=== PATIENT | male | born 1945 | race Caucasian/White ===

== ENCOUNTER → 2022-06-04 | Outpatient (CLI) | payer MEDICARE, OTHER, SELFPAY ==
--- NOTE | 2022-06-04 09:51 | ECHOD_ITS ---
Reason For Study: Syncope/Near Syncope Procedure This was a 2D Doppler, Color Flow transthoracic echocardiogram. The exam was of adequate technical quality. Exam performed in department. Left Ventricle Normal LV size. Left ventricular systolic function is normal. The estimated ejection fraction is 65 %. No evidence for diastolic dysfunction. No regional wall motion abnormalities noted. Right Ventricle Normal RV size. Normal systolic function. Atria The left atrium is mildly enlarged. Normal right atrium. No doppler evidence for ASD. Mitral Valve There is no mitral annular calcification. Normal mitral valve. Mild-Moderate (1-2+) mitral valve insufficiency. Tricuspid Valve Normal tricuspid valve. Trivial tricuspid valve insufficiency. Unable to estimate RV systolic pressure due to insufficient tricuspid regurgitant envelope. Aortic Valve Trisinus/trileaflet aortic valve. Mild focal aortic valve calcification. Pulmonic Valve The pulmonic valve is not well visualized. Great Vessels Normal sized aortic root. Pericardium/Pleural No pericardial effusion. MMode/2D Measurements & Calculations LVIDd: 4.8 cm IVSd: 1.2 cm Ao root diam: 3.2 cm LVIDs: 2.6 cm LVPWd: 0.98 cm LA dimension: 4.6 cm RVDd: 4.0 cm FS: 45.3 % LAV(MOD-bp): 69.3 ml LA A4 area: 22.8 cm2 RA A4 area: 19.6 cm2 LAV(MOD-bp) Indexed: 32.3 ml/m2 LAV(MOD-sp2): 69.8 ml LAV(MOD-sp4): 69.0 ml Time Measurements MV dec time: 0.17 sec Doppler Measurements & Calculations MV E max bob: 81.4 cm/sec Lat Peak E' Bob: 12.5 cm/sec Med Peak E' Bob: 10.5 cm/sec MV A max bob: 70.7 cm/sec E/E' lat: 6.5 E/E' med: 7.8 MV E/A: 1.2 MV V2 max: 99.5 cm/sec MV P1/2t max bob: 99.5 cm/sec Ao V2 max: 178.3 cm/sec MV max P.0 mmHg MV P1/2t: 57.8 msec Ao max P.7 mmHg MV V2 mean: 51.2 cm/sec MV dec slope: 504.7 cm/sec2 MV mean P.2 mmHg MVA(P1/2t): 3.8 cm2 MV V2 VTI: 27.5 cm LV V1 max: 147.8 cm/sec MR max bob: 546.3 cm/sec PA V2 max: 140.2 cm/sec LV V1 max P.7 mmHg MR max P.4 mmHg PA V2 mean: 94.9 cm/sec ECHO/Echo Complete Interpretation Summary Left ventricular systolic function is normal. The estimated ejection fraction is 65 %. The left atrium is mildly enlarged. Mild-Moderate (1-2+) mitral valve insufficiency. Trivial tricuspid valve insufficiency. Mild focal aortic valve calcification. Unable to estimate RV systolic pressure due to insufficient tricuspid regurgita nt envelope. No evidence for diastolic dysfunction. Ordering Physician: Balwinder Balbuena Referring Physician: Balwinder Pardo Performed By: Jose L Hubbard RCS
== END | disposition home or self-care (01) ==
LOC: CVS 09:50
PROVIDERS: PCP Family Medicine; Visit Provider Internal Medicine Cardiovascular Disease
DX: I25.10 Atherosclerotic heart disease of native coronary artery without angina pectoris (principal); R55 Syncope and collapse; I49.49 Other premature depolarization; E78.00 Pure hypercholesterolemia, unspecified; I10 Essential (primary) hypertension
CPT/HCPCS: 93306

== ENCOUNTER 2022-06-10 09:26 | Emergency (ER) | payer MEDICARE, OTHER, SELFPAY ==
[2022-06-10] VITALS (14 sets, daily range): BP systolic 143–175; BP diastolic 69–85; PULSE 54–86; RESP 10–18; TEMP 36.7; O2SAT 94–98; BMI 29.5
--- NOTE | 2022-06-10 09:31 | EKG12_ITS ---
Test Reason : HR Blood Pressure : / mmHG Vent. Rate : 073 BPM Atrial Rate : 073 BPM P-R Int : 320 ms QRS Dur : 120 ms QT Int : 404 ms P-R-T Axes : 063 -64 062 degrees QTc Int : 445 ms Sinus rhythm with 1st degree A-V block Left axis deviation Right bundle branch block Inferior infarct , age undetermined Abnormal ECG Confirmed by AZEB SANTILLAN MD ([id number]), metropolitan editor VALDEZ LOWRY ([id number]) on 06/14/2022 12:31:49 PM Referred By: ADITI Confirmed By:AZEB SANTILLAN MD
[2022-06-10 09:39] LABS: Absolute Lymphocyte Count 1.95 X10^3/uL (0.83-4.51); Absolute Neutrophil Count 2.5 X10^3/uL (2.0-7.7); Basophil# 0.05 X10^3/uL; Eosinophil# 0.09 X10^3/uL; Eosinophils% 1.8 % (0-5); Hematocrit 47.5 % (40-54); Lymphocyte # 1.95 X10^3/ul (0.83-4.51); Mean Corp Hgb Conc 33.7 g/dL (32-36); Mean Corpuscular Hgb 30.1 pg (27.0-32.0); Mean Corpuscular Volume 89.5 fL (80-94); Mean Platelet Vol. 10.2 fl (6.2-12.0); Monocyte# 0.44 X10^3/uL; Monocyte% 8.8 % (0-10); NRBC Flagged by Analyzer 0 % (0-5); Neutrophil # 2.45 X10^3/uL (2.7-7.7); Platelet Count 199 K/mm3 (150-450); RBC Distribution Width CV 12.9 % (11.6-14.6); RBC Distribution Width SD 42.4 fl (35.1-43.9); Red Blood Count 5.31 M/mm3 (4.6-6.2)
--- NOTE | 2022-06-10 09:39 | EX.ED.DYSGE1 ---
HPI History of Present Illness Chief Complaint: Palpitations Detail of Chief Complaint: Heart block and wide-complex tachycardia Informant: patient and other (Dr. Balbuena called prior to patient's arrival. I did speak with Dr. Balbuena. He informed me of patient's event monitor readings.) Onset/Context/Timing Onset: Days Context: Sudden Onset Timing: Intermittent Quality: Second-degree heart block, complete heart block and nonsustained V. tach Location: Cardiovascular Current Severity: Presently patient is having no symptomss Maximum Severity: Severe Worsened by: Nothing Relieved by: Nothing Associated Symptoms Associated Symptoms: Syncope Narrative Narrative: Patient is a 77-year-old male with history of hypertension, pure hypercholesterolemia who was sent to the emergency room because of heart block and wide-complex tachycardia, nonsustained V. tach. Patient had an event monitor placed to work-up syncope. He had a work-up in 2017 and was cathed at [facility]. He does not recall the [employer] or if he saw an EP [employer]. Rhythm strips that were reproduced from event monitor were reviewed. These were sent from Dr. Balbuena's office. Also reviewed cardiology records confirming that event monitor was placed for syncope. Patient presents without symptoms. He states he has had occasional swelling of his feet. His last dose of metoprolol was last evening. He is on amlodipine. He did take a baby aspirin. He was scheduled for a cardiac catheterization. Patient denies increased dyspnea with exertion. He denies dyspnea at rest. He denies orthopnea or PND. He denies history of heart failure. Left ventricular function is normal. He denies any anginal anginal equivalent symptoms in the past 1 to 2 weeks. He denies GI symptoms. He denies black or maroon-colored stool. He is not on an anticoagulant. Prior similar symptoms: Yes Recent Illness/Hospitalization: No PFSH PFS Medical History Atherosclerotic heart disease of [place] coronary artery without angina pectoris CAD (coronary artery disease) Cervical spine degeneration Chronic renal disease, stage III Dizziness Essential (primary) hypertension Excessive cerumen in both ear canals Goiter History of left heart catheterization (LHC) (~01/12/17) History of melanoma Hypercholesterolemia Lumbar degenerative disc disease Prostate cancer Pure hypercholesterolemia PVC (premature ventricular contraction) Right hip pain Skin lesion Home Medications epinephrine 0.15 mg/0.15 mL auto-injector (for 33 to 66 lb patients) 0.15 ml IM ONCE PRN hypersensitivity reaction 03/31/22 [History Last Taken Unknown] lisinopril 40 mg tablet 40 mg PO DAILY 03/31/22 [History Last Taken Unknown] omeprazole 20 mg capsule,delayed release 20 mg PO DAILY 03/31/22 [History Last Taken Unknown] prednisone 5 mg tablet 5 mg PO DAILY 03/31/22 [History Last Taken Unknown] amlodipine 5 mg tablet 10 mg PO DAILY 05/26/22 [History Last Taken Unknown] atorvastatin 20 mg tablet 40 mg PO DAILY 05/26/22 [History Last Taken Unknown] aspirin 81 mg tablet,delayed release (Adult Aspirin Regimen) 81 mg PO DAILY For Cardiac Catheterization #10 tabs 06/09/22 [Rx Last Taken Unknown] Allergy/AdvReac Type Severity Reaction Status Date / Time bee venom protein (honey bee) Allergy Severe Anaphylaxis Verified 06/10/22 09:31 Anesthetics - Amide Type - Allergy Unknown Other Verified 06/10/22 09:31 Select A Family History Mother Cancer Brain Brother CAD (coronary artery disease) stents Sister Rheumatic arteritis Father , 70 Hypertension AAA (abdominal aortic aneurysm) CRF (chronic renal failure) Surgical History History of lumbar discectomy (~1987) History of prostatectomy (~06/2006) History of skin cancer (~02/2007) Social History (Updated 06/10/22 @ 09:[address] Rafiq Knight MD) household members: spouse Smoking Status: Never smoker alcohol intake: current alcohol intake frequency: a few times a month substance use type: does not use caffeine: Yes Type: coffee Number of servings: 1 ROS ROS ED Constitutional Constitutional ED: Denies chills, fever(s), subjective, sweats or weight loss Eyes Eyes: Denies blurry vision, change in vision or diplopia ENT ENT ED: Denies ear pain or rhinorrhea Cardiovascular Cardiovascular: Denies chest pain, orthopnea, palpitations, paroxysmal nocturnal dyspnea or racing heartbeat Respiratory/Chest Respiratory/Chest: Denies cough, dyspnea, dyspnea on exertion, orthopnea or paroxysmal nocturnal dyspnea Gastrointestinal Gastrointestinal: Denies abdominal pain, melena, nausea or vomiting Genitourinary Genitourinary ED: Denies dysuria, hematuria or urinary frequency Musculoskeletal Musculoskeletal: Denies arthralgias, back pain, myalgias or neck pain Neurologic Neurologic: Denies paresthesias Psychiatric Psychiatric: Denies anxiety or depression Hematologic/Lymphatic Hematologic/Lymphatic: Reports systems reviewed and no addt'l complaints, except as documented and none EXAM Physical Exam Const Vital Signs: 06/10/22 09:27 06/10/22 09:31 06/10/22 10:26 Temperature 98.0 F Temperature Source Temporal Pulse Rate 86 61 Respiratory Rate 16 12 Respiratory Effort Normal Respiratory Pattern Normal Blood Pressure 175/75 H 150/77 H Blood Pressure Mean 108 101 Pulse Ox 98 97 Oxygen Delivery Method Room Air Room Air 06/10/22 11:00 06/10/22 12:00 06/10/22 13:45 Temperature Temperature Source Pulse Rate 61 56 L 54 L Respiratory Rate 12 13 10 L Respiratory Effort Respiratory Pattern Blood Pressure 149/69 H 144/76 H 158/70 H Blood Pressure Mean 95 98 99 Pulse Ox 97 95 95 Oxygen Delivery Method Room Air Room Air 06/10/22 14:08 06/10/22 15:00 06/10/22 16:00 Temperature Temperature Source Pulse Rate 57 L 60 58 L Respiratory Rate 14 13 14 Respiratory Effort Respiratory Pattern Blood Pressure 156/76 H 167/80 H 149/78 H Blood Pressure Mean 102 109 101 Pulse Ox 95 96 97 Oxygen Delivery Method Positive well nourished and well developed General Appearance ED: well developed and NAD; Negative for cyanotic, diaphoretic or pallor HEENT Reports moist mucous membranes HEENT Narrative: Head is atraumatic normocephalic. Ears normal. Nares patent. Uvula midline. No deviation with protrusion. Eyes PERRL and EOMs intact bilaterally General Eye ED: Negative for pale conjunctiva or scleral icterus Neck no lymphadenopathy, supple and no JVD Chest Wall inspection of chest normal and palpation of chest normal Resp normal respiratory effort and clear to auscultation bilaterally Cardio regular rate, regular rhythm, S1 normal heart sound, S2 normal heart sound and no murmurs GI normal to inspection, nondistended, normoactive bowel sounds, non-tender, non-distended and no masses; Negative for hepatosplenomegaly GI Narrative: There is no palpable pulsatile mass. There is no bruit. Back/Spine no CVA tenderness Thoracic Spine / Upper Back: Negative for thoracic spinal tenderness Lumbar Spine / Lower Back: Negative for lumbar spinal tenderness Extremity normal to inspection Extremity Narrative: Distal pulses are 2+ upper and lower extremity and symmetric. General Extremety ED: Negative for edema or tenderness General Extremity: Negative for edema Neuro oriented x3, CN's II-XII intact bilaterally and no sensory deficits noted Sensorium / Orientation: alert Motor Exam: strength 5/5 throughout Psych mental status grossly normal Skin no rashes or lesions noted, no wounds and skin turgor normal General Skin Exam: elasticity normal; Negative for jaundice or pallor MDM MDM MDM Narrative Medical decision making narrative: Records from outside source including rhythm strips from event monitor were reviewed. Patient does have evidence of heart block as well as wide-complex tachycardia, nonsustained V. tach. Cath report from 2017 was reviewed from outside facility which reveals coronary disease that was insignificant. Spoke with Dr. Balbuena prior to patient's arrival. He recommends transfer to tertiary facility with EP [employer]. Patient was made aware of this. Since he has a relationship with cardiology at [facility], [facility], transfer line was contacted to facilitate transfer. Patient will need cardiac work-up including cardiac cath, possible EP study and placement of pacemaker since patient is symptomatic with syncope. CBC was obtained assess white count and rule out anemia. Basic metabolic panel to assess renal function since he will require cardiac cath. Troponin to rule out evidence of recent cardiac ischemia even though patient has no symptoms or complaints. Rapid COVID was obtained to facilitate transfer. Ispoke with the fellow who was a at [facility] and the transfer line nurse. He was informed that elevated troponin. Discussed anticoagulation. At this point will anticoagulate with heparin. I was informed that a bed would not be available till later on this afternoon. In light of the elevated troponin a repeat 2-hour troponin was obtained. The rhythm strips from the event monitor were reviewed and follow-up was made aware. He states with patient having third-degree AV block with junctional escape rhythm at this rarely advances to complete heart block. Patient's monitor strip was reviewed. There is been no evidence of heart block since presentation. I was informed by the charge nurse and payroll secretary at 06/01/2006 that [facility] was contacted. They have no scheduled discharges for latest afternoon. They have 11 patients waiting in the emergency room for admission. In light of this new information we will contact Dr. Balbuena regarding being keeping patient here until there is a bed at [facility] versus transfer to other facility. Also will discuss with patient. [facility] [place] transfer line was contacted. I spoke with the transfer nurse. I was informed there are 9 patients waiting the emergency room. Patient was made aware of this. Will contact [facility] to determine if they have any beds available. Time 1334 Spoke with the nurse at [facility] transfer line. She was informed of patient's presentation reason for transfer and past medical history. She will contact cardiology and EP cardiology., Time [address] Balbuena at approximately 1520. He was informed that there are no beds available at local facilities and there is a significant wait at [facility]. He will contact one of the EP [employer] at [facility]. Since patient has been on her present for 6 hours PTT has been drawn. We will adjust heparin accordingly. I was contacted by Dr. Balbuena at 06/04/2000. He contacted the head of EP at [facility] Dr. Rodriguez. If he is unable to find a bed patient will need to be admitted to [facility] until a bed is available at [facility]. Patient's history and physical, findings and plan were discussed with evening physician, Dr. Mejia. Disposition regarding admission to [facility] versus [facility] is pending presently. Lab Data Attestation: I reviewed the patient's lab results. Lab results narrative: CBC is normal. Basic metabolic panel is remarked for creatinine of 1.49 with a GFR 51. Glucose is elevated 184. First troponin is elevated 141. His only anginal equivalent has been dyspnea with exertion. 2-hour troponin is 133 with a delta of -8. Labs: Laboratory Results - last 24 hr 06/10/22 06/10/22 06/10/22 09:30 09:30 09:30 WBC 5.0 RBC 5.31 Hgb 16.0 Hct 47.5 MCV 89.5 MCH 30.1 MCHC 33.7 RDW Std Deviation 42.4 RDW Coeff of Reji 12.9 Plt Count 199 MPV 10.2 Immature Gran % (Auto) 0.400 Neut % (Auto) 49.0 Lymph % (Auto) 39.0 [place] % (Auto) 8.8 Eos % (Auto) 1.8 Baso % (Auto) 1.0 Absolute Neuts (auto) 2.5 Absolute Lymphs (auto) 1.95 Nucleated RBC % 0 PT 13.4 INR 1.1 APTT 28.5 Sodium 139 Potassium 4.4 Chloride 108 H Carbon Dioxide 26.0 Anion Gap 5 BUN 29 H Creatinine 1.43 H Estim Creat Clear Calc 47.54 Est GFR (MDRD) Af Amer 62 Est GFR (MDRD) Non-Af 51 L BUN/Creatinine Ratio 20.3 H Glucose 184 H Calcium 9.6 Troponin I High Sens 141 H* 06/10/22 11:38 WBC RBC Hgb Hct MCV MCH MCHC RDW Std Deviation RDW Coeff of Reji Plt Count MPV Immature Gran % (Auto) Neut % (Auto) Lymph % (Auto) [place] % (Auto) Eos % (Auto) Baso % (Auto) Absolute Neuts (auto) Absolute Lymphs (auto) Nucleated RBC % PT INR APTT Sodium Potassium Chloride Carbon Dioxide Anion Gap BUN Creatinine Estim Creat Clear Calc Est GFR (MDRD) Af Amer Est GFR (MDRD) Non-Af BUN/Creatinine Ratio Glucose Calcium Troponin I High Sens 133 H* EKG Initial EKG: Attestation: I personally reviewed and interpreted this EKG as follows: Interpretation: Sinus Rhythm (Sinus rhythm with a rate of 73 and a first-degree heart block. PA intervals 320 ms. QS duration 220 ms. QT duration is 404 ms. [place] to left. Patient does have evidence of a right bundle branch block. There is no acute ischemic changes noted.) Critical Care Time Critical Care Time: Yes Critical care time (excluding procedures): 75-104 minutes (77 minutes), Including time spent: (History, physical, documentation, independent interpretation of laboratory results, discussion with cardiology, Dr. Balbuena, discussion with transfer nurse at [facility] and fellow, [place]?.), Discussing w/Patient &/or Family/Metal Trim Erector, Discussing w/Consultants, Arranging Admission or Transfer (Documented in the MDM portion of the chart) and - (Documented in the MDM) Discharge Plan Triage Chief Complaint: Palpitations ED Provider: Rafiq Knight Dx/Rx/DC Orders Clinical Impression: Third degree heart block by electrocardiogram, Heart block AV second degree, Essential (primary) hypertension, Atherosclerotic heart disease of [place] coronary artery without angina pectoris, Wide-complex tachycardia, Elevated troponin I level, Acute hyperglycemia, Acute renal insufficiency, Pure hypercholesterolemia, Anticoagulation adequate with anticoagulant therapy Prescriptions: No Action prednisone 5 mg tablet 5 mg PO DAILY omeprazole 20 mg capsule,delayed release(DR/EC) 20 mg PO DAILY lisinopril 40 mg tablet 40 mg PO DAILY epinephrine 0.15 mg/0.15 mL auto-injector 0.15 ml IM ONCE PRN (Reason: hypersensitivity reaction) amlodipine 5 mg tablet 10 mg PO DAILY atorvastatin 20 mg tablet 40 mg PO DAILY aspirin [Adult Aspirin Regimen] 81 mg tablet,delayed release (DR/EC) 81 mg PO DAILY Qty: 10 0RF Primary Care Provider: Balwinder Pardo Referrals: Balwinder Pardo DO [Primary Care Provider] - Disposition Disposition: Acute Care Hospital
[2022-06-10 10:01] LABS: Anion Gap 5 (5-15); BUN 29 mg/dL (7-18); BUN/Creat Ratio 20.3 RATIO (10-20); Calcium,Total 9.6 mg/dL (8.5-10.1); Chloride 108 mmol/L (98-107); Creatinine, Serum 1.43 mg/dL (0.70-1.30); EST Glomerular Filtration Rate 51 mL/min (>60); Est Glom Filt Rate - Afr Amer 62 mL/min (>60); Estimated Creatinine Clearance 47.54 ml/min; Glucose 184 mg/dL (74-106); Potassium 4.4 mmol/L (3.5-5.1); Sodium Level 139 mmol/L (136-145); Troponin-I HS 141 pg/mL (3.0-78.0)
[2022-06-10 10:23] LABS: International Normalized Ratio 1.1; Prothrombin Time (Protime)PT. 13.4 SECONDS (11.7-14.9)
[2022-06-10 10:24] LABS: Partial Thromboplast Time 28.5 Seconds (24.1-36.2)
[2022-06-10] MEDS: Heparin Injection (Vial) 5,000 UNIT/ML VIAL 3000 UNIT IV (10:24)
[2022-06-10] MEDS: HEPARIN/D5w 25,000 UNITS 25,000 UNITS/250 ML IV.SOLN. 14 UNITS CONT INF (10:28)
[2022-06-10 12:07] LABS: Troponin-I HS 133 pg/mL (3.0-78.0)
[2022-06-10 17:07] LABS: Partial Thromboplast Time 118.8 Seconds (24.1-36.2)
--- NOTE | 2022-06-10 17:20 | HP.PCM.HOS_ITS ---
HPI - General General Date of Admission: 06/10/22 Date of Service: 06/10/22 HPI Narrative The patient is a 77 y/o M w/ PMHx: CKD stage III unclear subtype, HTN, HLD, Hx Prostate CA s/p prostatectomy, CAD, HTN, HLD, Chronic back pain with DDD who presents to the [facility] ED on 06/10/22 with history of recently having a 30-day event monitor placed by his hydroelectric production manager with call per the company the evening prior secondary to patient's heart rate concerns with evidence of intermittent third-degree heart block as well as wide-complex tachycardia with no marked symptoms aside from potentially feeling his heart racing the evening prior however given the significant findings prompted referral to the ED emergently. Work-up in the ED included T 98, heart rate initially 6, BP initially 175/75, respiratory rate 16, 98% on room air In the ED patient initiated on heparin drip with bolus per Cardiology recommendation. dropped BB, plan for cardiac catheterization conduction disease, run VT pacemaker/AICD Troponin 141-->133 ICU, hold BB, heparin drip, asa, possible catheterization AM, ECHO 06/04/22 Left ventricular systolic function is normal. The estimated ejection fraction is 65 %. The left atrium is mildly enlarged. Mild-Moderate (1-2+) mitral valve insufficiency. Trivial tricuspid valve insufficiency. Mild focal aortic valve calcification. Unable to estimate RV systolic pressure due to insufficient tricuspid regurgitant envelope. No evidence for diastolic dysfunction. lidocaine preference if occurs. [facility] Medical History Atherosclerotic heart disease of [place] coronary artery without angina pectoris CAD (coronary artery disease) Cervical spine degeneration Chronic renal disease, stage III Dizziness Essential (primary) hypertension Excessive cerumen in both ear canals Goiter History of left heart catheterization (LHC) (~01/12/17) History of melanoma Hypercholesterolemia Lumbar degenerative disc disease Prostate cancer Pure hypercholesterolemia PVC (premature ventricular contraction) Right hip pain Skin lesion Home Medications epinephrine 0.15 mg/0.15 mL auto-injector (for 33 to 66 lb patients) 0.15 ml IM ONCE PRN hypersensitivity reaction 03/31/22 [History Last Taken Unknown] lisinopril 40 mg tablet 40 mg PO DAILY 03/31/22 [History Last Taken 06/10/22] omeprazole 20 mg capsule,delayed release 20 mg PO DAILY 03/31/22 [History Last Taken 06/10/22] prednisone 5 mg tablet 2.5 mg PO DAILY 03/31/22 [History Last Taken 06/10/22] aspirin 81 mg tablet,delayed release (Adult Aspirin Regimen) 81 mg PO DAILY For Cardiac Catheterization #10 tabs 06/09/22 [Rx Last Taken 06/10/22] amlodipine 10 mg tablet 10 mg PO DAILY BP 06/10/22 [History Last Taken 06/10/22] atorvastatin 40 mg tablet 40 mg PO QHS CHOLESTEROL 06/10/22 [History Last Taken 06/09/22] Allergy/AdvReac Type Severity Reaction Status Date / Time bee venom protein (honey bee) Allergy Severe Anaphylaxis Verified 06/10/22 09:31 Anesthetics - Amide Type - Allergy Unknown Other Verified 06/10/22 09:31 Select A Family History Mother Cancer Brain Brother CAD (coronary artery disease) stents Sister Rheumatic arteritis Father , 70 Hypertension AAA (abdominal aortic aneurysm) CRF (chronic renal failure) Surgical History History of lumbar discectomy (~1987) History of prostatectomy (~06/2006) History of skin cancer (~02/2007) Social History (Updated 06/10/22 @ 09:[address] Rafiq Knight MD) household members: spouse Smoking Status: Never smoker alcohol intake: current alcohol intake frequency: a few times a month substance use type: does not use caffeine: Yes Type: coffee Number of servings: 1 Vital Signs Vital Signs Vital Signs: 06/10/22 09:27 06/10/22 09:31 06/10/22 10:26 Temperature 98.0 F Temperature Source Temporal Pulse Rate 86 61 Respiratory Rate 16 12 Respiratory Effort Normal Respiratory Pattern Normal Blood Pressure 175/75 H 150/77 H Blood Pressure Mean 108 101 Pulse Ox 98 97 Oxygen Delivery Method Room Air Room Air 06/10/22 11:00 06/10/22 12:00 06/10/22 13:45 Temperature Temperature Source Pulse Rate 61 56 L 54 L Respiratory Rate 12 13 10 L Respiratory Effort Respiratory Pattern Blood Pressure 149/69 H 144/76 H 158/70 H Blood Pressure Mean 95 98 99 Pulse Ox 97 95 95 Oxygen Delivery Method Room Air Room Air 06/10/22 14:08 06/10/22 15:00 06/10/22 16:00 Temperature Temperature Source Pulse Rate 57 L 60 58 L Respiratory Rate 14 13 14 Respiratory Effort Respiratory Pattern Blood Pressure 156/76 H 167/80 H 149/78 H Blood Pressure Mean 102 109 101 Pulse Ox 95 96 97 Oxygen Delivery Method 06/10/22 17:00 Temperature Temperature Source Pulse Rate 61 Respiratory Rate 12 Respiratory Effort Respiratory Pattern Blood Pressure 148/78 H Blood Pressure Mean 101 Pulse Ox 96 Oxygen Delivery Method Weight Weight: 212 lb 1.355 oz Body Mass Index (BMI) 29.5 Results Lab / Micro Data Result Diagrams: 06/10/22 09:30 06/10/22 09:30 Labs: Laboratory Results - last 24 hr 06/10/22 09:30: WBC 5.0, RBC 5.31, Hgb 16.0, Hct 47.5, MCV 89.5, MCH 30.1, MCHC 33.7, RDW Std Deviation 42.4, RDW Coeff of Reji 12.9, Plt Count 199, MPV 10.2, Immature Gran % (Auto) 0.400, Neut % (Auto) 49.0, Lymph % (Auto) 39.0, [place] % (Auto) 8.8, Eos % (Auto) 1.8, Baso % (Auto) 1.0, Absolute Neuts (auto) 2.5, Absolute Lymphs (auto) 1.95, Nucleated RBC % 0 06/10/22 09:30: Sodium 139, Potassium 4.4, Chloride 108 H, Carbon Dioxide 26.0, Anion Gap 5, BUN 29 H, Creatinine 1.43 H, Estim Creat Clear Calc 47.54, Est GFR (MDRD) Af Amer 62, Est GFR (MDRD) Non-Af 51 L, BUN/Creatinine Ratio 20.3 H, Glucose 184 H, Calcium 9.6, Troponin I High Sens 141 H* 06/10/22 09:30: PT 13.4, INR 1.1, APTT 28.5 06/10/22 11:38: Troponin I High Sens 133 H* 06/10/22 16:39: APTT 118.8 H* Micro: Microbiology 06/10/22 09:40 Nasal Secretion SARS-CoV-2 Antigen (Rapid) - Final
--- NOTE | 2022-06-10 19:19 | PCM.HOSP.N ---
Hospitalist Note The patient is a 77 y/o M w/ PMHx: CKD stage III unclear subtype, HTN, HLD, Hx Prostate CA s/p prostatectomy, CAD, HTN, HLD, Chronic back pain with DDD who presents to the [facility] ED on 06/10/22 with history of recently having a 30-day event monitor placed by his process control tech with call per the company the evening prior secondary to patient's heart rate concerns with evidence of intermittent third-degree heart block as well as wide-complex tachycardia with no marked symptoms aside from potentially feeling his heart racing the evening prior however given the significant findings prompted referral to the ED emergently. Discussed case with ED and Cardiology given initially no available bed at tertiary facility in timely manner with plan for transition to the [facility] ICU while awaiting bed, hold BB, continued heparin drip given troponin rise although trending downward, asa, catheterization AM, ECHO 06/04/22 not marked appearing thus no need to repeat with usage of IV lidocaine if recurrent VT evidence given complexity of his presentation with intermittent heart block. Patient evaluation initiated; however, updated service and patient that patient did in fact now have a bed at the facility and would not need admitted. Dr. Balbuena updated and family as well.
[2022-06-10 19:48] LABS: Magnesium 1.9 mg/dL (1.6-2.6)
--- NOTE | 2022-06-10 23:14 | ED.RN ---
Pt and spouse are very upset and have called out complaining multiple times on the wait time for transport. This RN at bedside apologizing for the delay, this RN educates patient and family on the process of ambulance transfers. Their transport has been delayed multiple times. This RN continues to keep patient and family updated, they are very short with this RN and very upset.
--- NOTE | 2022-06-10 23:15 | NURSING ---
Addendum entered by Mirella Kramer 06/10/22 23:22: CALLED FOR ANOTHER UPDATE 25 MIN OUT PHYSICIANS STATED Original Note: AT SHIFT CHANGE AND ETA FOR [facility] WAS GIVEN OF 830PM. I CALLED BACK SHORTLY AFTER 830 AND WAS GIVEN ANOTHER 60 MINUTE ETA. I THEN CALLED [employer]IPSHE[employer] OPERATOR TO 10PM GIVEN A WITHIN THE HR ETA.
== END 2022-06-11 00:15 | disposition short-term general hospital (02) ==
PROVIDERS: Family Medicine; Emergency Provider Emergency Medicine; PCP Family Medicine; Visit Provider Emergency Medicine
DX: I44.2 Atrioventricular block, complete (principal); I47.29 Other ventricular tachycardia; I47.20 Ventricular tachycardia, unspecified; N18.30 Chronic kidney disease, stage 3 unspecified; I34.0 Nonrheumatic mitral (valve) insufficiency; N28.9 Disorder of kidney and ureter, unspecified; R77.8 Other specified abnormalities of plasma proteins; M54.9 Dorsalgia, unspecified; I12.9 Hypertensive chronic kidney disease with stage 1 through stage 4 chronic kidney disease, or unspecified chronic kidney disease; R73.9 Hyperglycemia, unspecified; G89.29 Other chronic pain; I25.10 Atherosclerotic heart disease of native coronary artery without angina pectoris; Z20.822 Contact with and (suspected) exposure to COVID-19; E78.00 Pure hypercholesterolemia, unspecified; Z79.82 Long term (current) use of aspirin; Z79.899 Other long term (current) drug therapy; Z95.810 Presence of automatic (implantable) cardiac defibrillator
CPT/HCPCS: 80048; 83735; 84484; 85025; 85610; 85730; 87811; 93005; 99285; A4216

== ENCOUNTER 2022-06-15 06:51 | Day surgery (SDC) | payer MEDICARE, OTHER, SELFPAY ==
[2022-06-14 10:09] VITALS: BMI 29.1
--- NOTE | 2022-06-14 11:37 | RAD_ITS ---
INDICATION: Cardiac Catheterization EXAMINATION/TECHNIQUE: X-RAY - XR Chest 2 Views COMPARISON: None. FINDINGS: LINES/DEVICES: None. LUNGS: No consolidation, edema or effusion. Bilateral granulomas. No pneumothorax. MEDIASTINUM AND CARDIOVASCULAR STRUCTURES: Cardiac silhouette not enlarged. Central airways. Left hilar granulomatous calcifications. BONES AND SOFT TISSUES: Unremarkable. RAD/Chest PA and Lateral IMPRESSION: Bilateral granulomatous calcifications. Electronically Signed: Rasta Bonilla DO at 17:28 EST Reading Location ID and State: [facility] / [place] Tel [phone], Service support ,
--- NOTE | 2022-06-14 15:07 | HP.PCM_ITS ---
History and Physical Date of Admission: 06/15/22 [facility] [address] [place] [address] MR#: [id number] Acct: [id number] Name:YOAV MCDERMOTT Rep #: [id number] : 1945 ?Provider: Dr. Balwinder Balbuena MD Age/Sex:? 76/M ?Location: [facility] Status: Signed HPI HPI History of Present Illness Details: This is a 76-year-old white male who presents today for outpatient cardiovascular consultation with a history of underlying CAD-reported as nonobstructive, cardiac ectopy with PACs/PVCs, hyperlipidemia, hypertension, as well as syncope.? He has been previously evaluated by [facility] cardiology with his last outpatient visit being on 06-29-2018.? At that time there were comments regarding the aforementioned concerns with the exception of the syncope.? He was being treated medically at that time. He states to the best of his knowledge she has no ongoing symptoms of chest discomfort.? He has had no issues of orthopnea or PND.? He has had no ongoing potation.? He states he does have episodes that usually occur every week where he feels something is not right and is if he may want to be, dizzy lightheaded or lose consciousness but has not. He states back in the summertime and this year he did have an episode where after exiting his automobile he felt lightheaded dizzy and lost consciousness. At that point in time he underwent further evaluation which included a 24-hour Holter monitor.? This was performed through the [facility] system.? Per the report he had unremarkable Holter monitor demonstrating sinus rhythm at normal rates, rare atrial and ventricular ectopy, and an occasional nonconducted premature atrial contraction. He has undergone previous echocardiogram through the [facility] system on 12-14-2016.? At that point in time the left ventricle was reported as normal with an LVEF of 65% and there was mild to moderate MR. He had a previous stress echocardiogram performed through the [facility] system on 12-14-2016.? Per their report there was no evidence of stress- induced ischemia, the stress ECG was abnormal due to arrhythmia increased frequency and complexity of ventricular ectopy at peak exercise and early recovery without ST changes. The patient went on to have diagnostic cardiac catheterization performed on 01-12-2017.? Per the report he had no evidence of significant CAD.? His LV systolic function was normal with an LVEF of 55 to 60%. In the office today he was noted to have sinus bradycardia with a first-degree AV block with right bundle branch block pattern, and inferior [place] pattern of indeterminate age cannot be excluded, and T wave changes potentially compatible with anterolateral myocardial ischemia.? In comparison to a previous ECG from October of this year there appear to be similar type findings. Intake Vital Signs ? 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: No Accompanied by: Self Allergies bee venom protein (honey bee) Allergy (Severe, Verified 05/26/22 10:41) AnaphylaxisAnesthetics - Amide Type - Select A Allergy (Unknown, Verified 05/26/22 10:41) Other Medications epinephrine 0.15 mg/0.15 mL auto-injector (for 33 to 66 lb patients) 0.15 ml IM ONCE PRN hypersensitivity reaction 03/31/22 [History Confirmed 05/26/22] lisinopril 40 mg tablet 40 mg PO DAILY 03/31/22 [History Confirmed 05/26/22] metoprolol succinate 50 mg tablet,extended release 24 hr 50 mg PO DAILY 03/31/22 [History Confirmed 05/26/22] omeprazole 20 mg capsule,delayed release 20 mg PO DAILY 03/31/22 [History Confirmed 05/26/22] prednisone 5 mg tablet 5 mg PO DAILY 03/31/22 [History Confirmed 05/26/22] amlodipine 5 mg tablet 10 mg PO DAILY 05/26/22 [History Confirmed 05/26/22] atorvastatin 20 mg tablet 40 mg PO DAILY 05/26/22 [History Confirmed 05/26/22] [facility] Medical History? Atherosclerotic heart disease of [place] coronary artery without angina pectoris CAD (coronary artery disease) Cervical spine degeneration Chronic renal disease, stage III Dizziness Essential (primary) hypertension Excessive cerumen in both ear canals Goiter History of left heart catheterization (LHC) (~08/16/17) History of melanoma Hypercholesterolemia Lumbar degenerative disc disease Prostate cancer Pure hypercholesterolemia PVC (premature ventricular contraction) Right hip pain Skin lesion Surgical History? History of lumbar discectomy (~1987) History of prostatectomy (~06/2006) History of skin cancer (~02/2007) Family History? Mother Cancer ?? ? BrainBrother CAD (coronary artery disease) ?? ? stentsSister Rheumatic arteritisFather?? ,? 70 Hypertension AAA (abdominal aortic aneurysm) CRF (chronic renal failure) Social History? Smoking Status:? Never smoker alcohol intake:? current alcohol intake frequency: a few times a month substance use type:? does not use caffeine:? Yes Type: coffee Number of servings: 1 ROS Const Const: Positive for fatigue (not alot of energy); Negative for weakness, body ache, fever(s), headache(s), chills, frequent falls, night sweats, daytime sleepiness, difficulty sleeping, excessive sweating, weight gain, weight loss, increased appetite, poor appetite, anorexia or other Eyes Eyes: Negative for blurry vision or double vision ENT ENT: Negative for headache(s), dizziness or balance problems Cardio Chest Pain: No Palpitations: Yes (occasional) feels like its: other (hard beat) Edema: Bilateral (progressive thruout the day top of pedals, ankles) Muscle aches with walking: None Resp Respiratory: Negative for SOB with activity, SOB at rest, SOB orthopnea\SOB lying down, Cough, Coughing up blood/hemoptysis, chest congestion, pain on inspiration, snoring, stridor, wheezing, crackles, paroxysmal nocturnal dyspnea or other Musc Musc: Positive for muscle aches/ myalgia (generalized) and joint pain (Rt knee); Negative for muscle weakness or balance problems Neuro Neuro: Positive for lightheadedness (occasional random) and syncope (x1 episode in the summer; ambulating into store, woke on the ground); Negative for dizziness, near syncope, orthostatic symptoms, frequent falls, headache(s), weakness, confusion, memory loss, restless legs, blurry vision, double vision, vertigo, seizures, lack of coordination or other Endo Endo: Positive for fatigue (not alot of energy); Negative for excessive sweating Cardiology Exam Const Appearance: cooperative, healthy appearing, comfortable, no acute distress, well developed and well groomed Nutritional Appearance: overweight Orientation: alert, awake and oriented x3 Head Head: normal to inspection, normocephalic and atraumatic Ears: hearing grossly normal bilaterally Nose: external nose normal Face and Sinus: face symmetric Eyes Eyelids: eyelids normal Conjunctivae: conjunctivae normal Pupils: PERRL EOM: EOM intact bilaterally Neck Neck: normal visual inspection and full ROM Carotids: normal carotid upstroke Chest Chest inspection: normal inspection of the chest, symmetric chest movement and normal respiratory effort Auscultation: Bilateral: Clear to Auscultation Cardio Palpation: normal PMI Rate: regular rate Rhythm: regular rhythm Heart sounds: S1 normal and S2 normal GI GI: normal to inspection, soft and bowel sounds present Neuro General: patient alert, patient awake, patient oriented x3, gait normal and moves all extremities Skin Skin: no rashes or lesions noted Extremities Pulses: Normal: Right Radial Pulse and Left Radial Pulse Lower Extremity Edema: Trace: Bilateral Psych Psychological: normal affect Supplemental Info Supplemental Information Labs: ?? ? No Data to Display Diagnostics: ?? ? Electrocardiogram ? Pulmonary: ?? ? No Data to Display Assessment and Plan Assessment and Plan (1) Atherosclerotic heart disease of [place] coronary artery without angina pectoris: ?Status:?Acute ?Comment: Nonobstructive CAD ?Plan: At the present time he appears to be without obvious symptoms of classic angina pectoris. He will continue risk factor modification and medical management. (2) Ectopic cardiac beats: ?Status:?Acute ?Plan: He does have a history of neck ectopy. Its unclear as to whether or not he is having any other forms of cardiac ectopy or dysrhythmia that would be contributing to his symptoms or his previous syncopal event. Thus he will undergo further evaluation with a 30-day ambulatory event monitor. (3) Syncope: ?Status:?Acute ?Plan: Based upon his syncope he will continue evaluation care as noted. He will also undergo further evaluation with an echocardiogram to reassess his left ventricular wall motion and systolic function. (4) Pure hypercholesterolemia: ?Status:?Acute ?Plan: He states his PCP is monitoring his lipid labs. He will continue medical therapy at this time. (5) Essential (primary) hypertension: ?Status:?Chronic ?Plan: His his blood pressure has been reported as being somewhat of a challenge to control. He states his PCP just increased his amlodipine therapy to 10 mg a day. He will monitor his blood pressure with the hopes this will improve. If not he may need further adjustment of his antihypertensive regimen. ? ? ? Orders: Orders 12 Lead EKG performed by [facility] Today E78.0 0 - Pure hypercholesterolemia, unspecified, I10 - Essential (primary) hypertension, I25.10 - Atherosclerotic heart disease of [place] coronary artery without angina pectoris ? 30 Day Event Recorder Preventi Today E78 .00 - Pure hypercholesterolemia, unspecified, I10 - Essential (primary) hypertension, I25.10 - Atherosclerotic heart disease of [place] coronary artery without angina pectoris, I49.49 - Other premature depolarization, R42 - Dizziness and giddiness, R55 - Syncope and collapse ? Echo Complete Today E78.00 - Pure hypercholesterolemia, unspecified, I10 - Essential (primary) hypertension, I25.10 - Atherosclerotic heart disease of [place] coronary artery without angina pectoris, I49.49 - Other premature depolarization, R55 - Syncope and collapse ? Plan Details Additional Comments: Thank you for allowing me to participate in the care of your patient.? Please don't hesitate to call if any issues arise. This note was generated using a voice recognition system and there may be incorrect words, spelling or punctuation that were not noted when reviewing the office note prior to saving. Follow Up: ? ? 3 Months (PFM ) COVID (Procedure Consent) Procedure Criteria Procedure Criteria: Yes Elective The surgeon/proceduralist and patient have discussed in detail the risk of exposure to and/or potential harm posed by the COVID-19 virus with having a surgery/procedure at this time versus the risk of? delaying the surgery/procedure. It is not possible to know either the risk of delaying the surgery or procedure or chance of getting an infection with perfect accuracy, but a joint decision was made between the patient and the surgeon/proceduralist ?to proceed at this time with the scheduled surgery/procedure as indicated on the consent form. Coding Level of Care Code Off vis,new,level 4 Diagnoses Atherosclerotic heart disease of [place] coronary artery without angina pectoris? I25.10 Ectopic cardiac beats? I49.49 Syncope? R55 Pure hypercholesterolemia? E78.00 Essential (primary) hypertension? I10 Coding Level of Care Code Off vis,new,level 4 Diagnoses Atherosclerotic heart disease of [place] coronary artery without angina pectoris? I25.10 Ectopic cardiac beats? I49.49 Syncope? R55 Pure hypercholesterolemia? E78.00 Essential (primary) hypertension? I10 05/26/22 1242 <Electronically signed by Balwinder Balbuena MD> Date Balwinder Balbuena MD Cosigner Signature: Date (if applicable) CC:? Dr. Balwinder Pardo, DO ~ Assessment & Plan Addt'l Comments Addendum: 06-15-2022: I have examined the patient the following changes are noted: The patient underwent evaluation with a transthoracic echocardiogram on 06-04-2022. The results are noted below. Interpretation Summary Left ventricular systolic function is normal. The estimated ejection fraction is 65 %. The left atrium is mildly enlarged. Mild-Moderate (1-2+) mitral valve insufficiency. Trivial tricuspid valve insufficiency. Mild focal aortic valve calcification. Unable to estimate RV systolic pressure due to insufficient tricuspid regurgitant envelope. No evidence for diastolic dysfunction. The patient has been undergoing evaluation with a 30-day ambulatory event monitor. His event monitor was noted to demonstrate sinus rhythm, conduction system abnormalities with high-grade AV block with 2-1 AV block and third-degree AV block. He was also noted to have nonsustained wide-complex tachycardia compatible with nonsustained ventricular tachycardia. The patient was recommended to present to the [facility] emergency department on 06-10-2022 for further evaluation based upon his underlying cardiac conduction system abnormalities and dysrhythmia with plans for the patient to be transferred to a tertiary care center for further electrophysiology consultation. The patient was transferred to [facility] where he did undergo electrophysiology consultation. He was noted to have concerns of an elevated troponin I level as well as concerns of his advanced heart block and nonsustained ventricular tachycardia. While there he had no ongoing cardiac dysrhythmias. Consideration was given to noninvasive evaluation of his coronary artery status versus continued invasive evaluation. The patient had been recommended to have further evaluation with cardiac catheterization, based upon his ventricular dysrhythmia that was found before his conduction system abnormality, prior to his emergency department evaluation and subsequent transfer to [facility] for further electrophysiology evaluation. The patient wanted to proceed with further evaluation with diagnostic cardiac catheterization as opposed to noninvasive valuation and then future electrophysiology study. In the interim the patient was hopeful to return home and to continue his evaluation as an outpatient versus remaining in the hospital for a lengthy period of time. The patient was released home on his medical therapy including his low-dose metoprolol succinate at 25 mg p.o. daily. The patient's case has been discussed and reviewed. The patient's case was also discussed and reviewed with Dr. Rodriguez of electrophysiology at [facility]. He participated in the care of the patient while at [facility]. He was comfortable with the patient being released home for continued local evaluation and care. Thus at the present time the patient is going to proceed with further evaluation with diagnostic cardiac catheterization. The procedure and risk were discussed with him he was agreeable to this approach. Depending upon the findings he may or may not need additional evaluation and/or care of underlying coronary artery disease related issues. Otherwise the patient will also be scheduled for an upcoming electrophysiology procedure under the direction of Dr. Rodriguez. That procedure will help with respect to ongoing care of the patient's conduction system related issues and his ventricular dysrhythmia related issues. This note was generated using a voice recognition system and there may be incorrect words, spelling or punctuation that were not noted when reviewing the office note prior to saving.
--- NOTE | 2022-06-15 08:47 | CL.D_ITS ---
Patient Name: YOAV DOUGHERTY Study Date: 06/15/2022 Performing: Balwinder Balbuena MD Ht: 71 inches 180.34 cm : 1945 Wt: 209.3 lbs 94.8 kg Age: 77 Gender: male BSA: 2.15 PROCEDURE(S) PERFORMED DC01-(40300)LHC/COR/LV CLINICAL PROFILE AND INDICATIONS Indications: Syncope, Cardiac Arrythmia, Suspected CAD Heart Failure: None Stress/Imaging Stress/Image Study Performed: No Angina Classification Anginal Classification w/in 2 Weeks: No symptoms CAD Presentations: Other: syncope CONCLUSIONS Elevated Left Ventricular End Diastolic Pressure (mild) Normal LV size, wall motion,and systolic function LVEF: by LV gram 65 % obstructive) RECOMMENDATIONS Risk factor modification Medical therapy Plan: EPS DESCRIPTION OF PROCEDURE The patient arrived to the procedure lab. The risks and benefits of the procedure as well as a full description of our services here and current unavailability of surgical backup were fully explained to the patient and/or their significant other prior to the catheterization. The Timeout was completed, verifying the correct patient and procedure. The patient's procedural site was prepped and draped in the usual fashion. Local anesthetic was given subcutaneously to right radial region with Lidocaine 2%. Using a modified Seldinger technique, arterial access was obtained via the right radial artery, a 6Fr sheath was inserted. Left Coronary Artery selective angiography was performed in multiple views using a 5 Fr. 4.0 [place] catheter. Right Coronary Artery selective angiography was then performed in multiple views using a 5 Fr. 4.0 [place] catheter. Left Ventriculography was performed in MARQUEZ projection using a 5 Fr. Pig[place] catheter. LV to AO pullback pressures were then recorded.The arterial sheath was pulled and a TR Band was applied for hemostasis CORONARY ANGIOGRAPHY DOMINANCE: Right Dominant LEFT HEART ASSESSMENT Left Ventricular Ejection Fraction: by LV Gram 65 % Normal LV wall motion Elevated Left Ventricular End Diastolic Pressure LVEDP: 17 mmHg LEFT MAIN: Angiographically normal LEFT ANTERIOR DESCENDING ARTERY: MID LAD: Mild luminal irregularities CIRCUMFLEX ARTERY: Angiographically normal RAMUS: Angiographically normal RIGHT CORONARY ARTERY: PROX RCA: Mild luminal irregularities AORTIC ROOT: Angiographically normal COMPLICATIONS No Complications PROCEDURE MEDICATIONS Fentanyl 50 mcg IV Versed 1 mg IV Versed 1 mg IV Fentanyl 50 mcg IV Oxygen: 2 L/min via nasal cannula Heparin given IA 06/15/2022 08:16:56 Verapamil 2.5mg, Ntg 100mcgs, 3000 units of Heparin given IA 06/15/2022 08:16:56 SUMMARY OF HEMODYNAMIC DATA Time AIR REST ECG 07:11:41 AO 101/60 (80) SA 08:20:46 LV 144/0, 17 08:26:23 LV 144/0, 17 08:26:29 LV 132/2, 17 08:27:14 LV 125/3, 16 08:27:20 LVp 126/18, 39 08:27:25 AOp 114/47 (72) 08:27:30 ECG 08:42:28 Signed By Balwinder Balbuena MD On 06/15/2022 08:47:05 Balwinder Balbuena MD
== END 2022-06-15 10:25 | disposition home or self-care (01) ==
LOC: CLSP 06:53
PROVIDERS: PCP Family Medicine; Referring Provider Internal Medicine Cardiovascular Disease; Visit Provider Internal Medicine Cardiovascular Disease
DX: I25.10 Atherosclerotic heart disease of native coronary artery without angina pectoris (principal); N18.30 Chronic kidney disease, stage 3 unspecified; R55 Syncope and collapse; I49.49 Other premature depolarization; I49.1 Atrial premature depolarization; E78.00 Pure hypercholesterolemia, unspecified; I12.9 Hypertensive chronic kidney disease with stage 1 through stage 4 chronic kidney disease, or unspecified chronic kidney disease; I44.0 Atrioventricular block, first degree; I45.10 Unspecified right bundle-branch block; Z79.899 Other long term (current) drug therapy; Z79.52 Long term (current) use of systemic steroids; R42 Dizziness and giddiness
CPT/HCPCS: 71046; 93458; 99152; 99153; J7040; C1769; C1894; Q9967

== ENCOUNTER 2022-06-17 08:25 | Day surgery (SDC) | payer MEDICARE, OTHER, SELFPAY ==
[2022-06-16 09:32] VITALS: BMI 29.1
--- NOTE | 2022-06-17 11:33 | ELECTROSTU_ITS ---
Electrophysiology Report Electrophysiology Report The patient is a 77-year-old gentleman with normal ejection fraction first- degree AV block and a right bundle branch block pattern undergoing EP testing for evaluation of a syncopal episode that occurred 6 months ago. His history is consistent with positional orthostasis. Monitor shows nonsustained VT in 2-1 AV block occurring during sleep. Otherwise the patient has not had any symptomatic episodes. After informed consent the patient was brought to the catheterization laboratory at [facility]. The RIGHT groin was prepped and draped in usual sterile manner and 1% lidocaine as well as intermittent boluses of fentanyl and Versed were used for sedation and analgesia. 2 4 [place] catheters and one 5 [place] steerable catheter were placed through femoral vein access into the right atrium hiss bundle region and right ventricular region. Programmed stimulation was performed. EP testing results in the baseline state are: sinus cycle length 860, AH 180, HV 65-70, maximum SnRT is 1280, CSnRT is 1 is 420 AV block cycle length is 600 there is VA dissociation the AV node effective refractory. It is [address] cycle length of 700 the VERP is [address] of 500 there was no infranodal conduction block. Carotid sinus massage was performed on the right and left. On the right there was a seven-point second asystolic episode and on the left it was a 2.4-second asystolic episode but neither episode was associated with symptoms. EP testing on Isuprel shows a sinus cycle length of 770 ms, AH of 125 HV of 65- 70. AV block cycle length is 420 VA block cycle length is 520 there is decremental antegrade and retrograde conduction the AV node effective refractory period is [address] of [address] There is no infranodal conduction block. During the entirety of the EP procedure there was no inducible or spontaneous occurrence of SVT, VT, nonsustained VT or polymorphic VT. Conclusions: The patient has normal sinus node , prolonged AV node conduction cycle length, mildly prolonged infranodal conduction. No inducible arrhythmias. And although there is a long response to carotid sinus massage there were no symptoms and his features of syncope are not consistent with carotid sinus hypersensitivity. Therefore at this time I do not recommend any further evaluation testing or pacemaker implantation.
== END 2022-06-17 15:22 | disposition home or self-care (01) ==
LOC: CLSP 08:26
PROVIDERS: PCP Family Medicine; Visit Provider Internal Medicine Cardiovascular Disease
DX: R55 Syncope and collapse (principal); I25.10 Atherosclerotic heart disease of native coronary artery without angina pectoris; I10 Essential (primary) hypertension; E78.00 Pure hypercholesterolemia, unspecified; I49.49 Other premature depolarization; Z82.49 Family history of ischemic heart disease and other diseases of the circulatory system
CPT/HCPCS: 93620; 93623; 99152; 99153; C1730; C1894; J7040

== ENCOUNTER → 2022-06-28 | Outpatient (CLI) | payer MEDICARE, OTHER, SELFPAY | END | disposition home or self-care (01) | LOC: SL 20:18 | PROVIDERS: PCP Family Medicine; Referring Provider Nurse Practitioner Gerontology; Visit Provider Nurse Practitioner Gerontology | DX: G47.33 Obstructive sleep apnea (adult) (pediatric) (principal); I45.9 Conduction disorder, unspecified | CPT/HCPCS: 95810 ==

== ENCOUNTER → 2022-07-21 | Outpatient (CLI) | payer MEDICARE, OTHER, SELFPAY ==
[2022-07-21 16:41] LABS: Absolute Lymphocyte Count 1.68 X10^3/uL (0.83-4.51); Basophil# 0.06 X10^3/uL; Eosinophil# 0.03 X10^3/uL; Eosinophils% 0.5 % (0-5); Hematocrit 46.8 % (40-54); Hemoglobin 15.4 g/dL (13.0-16.5); Lymphocyte # 1.68 X10^3/ul (0.83-4.51); Lymphocyte % 27.3 % (19-41); Mean Corp Hgb Conc 32.9 g/dL (32-36); Mean Corpuscular Hgb 29.8 pg (27.0-32.0); Mean Corpuscular Volume 90.5 fL (80-94); Monocyte# 0.41 X10^3/uL; Monocyte% 6.7 % (0-10); NRBC Flagged by Analyzer 0 % (0-5); Neutrophil # 3.96 X10^3/uL (2.7-7.7); Neutrophil % 64.3 % (47-70); Platelet Count 229 K/mm3 (150-450); RBC Distribution Width CV 12.8 % (11.6-14.6); RBC Distribution Width SD 42.5 fl (35.1-43.9); Red Blood Count 5.17 M/mm3 (4.6-6.2); White Blood Count 6.2 K/mm3 (4.4-11.0)
[2022-07-21 17:08] LABS: Anion Gap 5 (5-15); BUN 43 mg/dL (7-18); BUN/Creat Ratio 26.5 RATIO (10-20); Calcium,Total 10.1 mg/dL (8.5-10.1); Chloride 108 mmol/L (98-107); Creatinine, Serum 1.62 mg/dL (0.70-1.30); EST Glomerular Filtration Rate 44 mL/min (>60); Est Glom Filt Rate - Afr Amer 54 mL/min (>60); Free T3 2.6 pg/mL (2.18-3.98); Glucose 112 mg/dL (74-106); Potassium 5.3 mmol/L (3.5-5.1); Sodium Level 142 mmol/L (136-145); T4 Free Direct 0.93 ng/dL (0.76-1.46); Thyroid Stim Hormone (TSH) 0.63 uIU/mL (0.358-3.74)
[2022-07-21 17:40] LABS: International Normalized Ratio 1.1; Partial Thromboplast Time 33.8 Seconds (24.1-36.2); Prothrombin Time (Protime)PT. 14.3 SECONDS (11.7-14.9)
== END | disposition home or self-care (01) ==
LOC: LAB 16:20
PROVIDERS: PCP Family Medicine; Visit Provider Nurse Practitioner Gerontology
DX: R00.0 Tachycardia, unspecified (principal); I25.10 Atherosclerotic heart disease of native coronary artery without angina pectoris; R55 Syncope and collapse; I10 Essential (primary) hypertension
CPT/HCPCS: 36415; 80048; 84439; 84443; 84481; 85025; 85610; 85730

== ENCOUNTER 2022-10-07 11:30 | Outpatient (RCR) | payer MEDICARE, OTHER, SELFPAY ==
--- NOTE | 2022-09-07 15:48 | HP.PTEVAL ---
Patient's Visit Information YOAV DOUGHERTY is a 77 year old M referred to Physical Therapy by ADÁN ROUSSEAU with a diagnosis of PRIMARY OSTEOARTHRITIS OF RIGHT KNEE. Date of Evaluation: 09/07/22 Physical Therapist: Wilber Engel, PT, Cert MDT, OCS - Visit Plan Frequency: 2x /Week Duration: 4 Weeks Plan: PT INTERVENTIONS FLEXABLITY HAMSTRINGS /CALF, PRES QUADS/HAMS/HIP ,ROM/STRETCHING ,FUNCTIONAL STRENGTHENING ,CP AND OKAY TO USE VAS FOR EDEMA - Subjective This 77 y/o male presents to physical therapy with right TKA on July done by Dr. Rousseau at [facility] Patient knee pain many years which progressively worse. Patient was 08/02/22 with [facility] and [facility] ~ weeks. Patient having problems with stiffness/pain . Aggravating factors extended standing and walking. Patient does have edema . Patient has 1 story home with 3steps with no rails . Bathroom with walk in shower with shower seat. Patient c/o paresthesia/lateral knee and ache. Patient weaned from no device . Patient doing steps one steps at time. Patient has difficulty sleeping. Patient goals to decrease pain and walk normal. VOCATION: retired. SOCAIL: - Pain Bilateral Knee Pain Intensity (Out of 10): 3 Pain Intensity Range: 10 - Objective POSTURE: mild forward posture knee slightly flexed. NEURO: C/O paresthesia lateral knee ,reflexes intact. GAIT: reciprocal pattern mild antalgic gait. STAIRS: one step at time. GIRTH PATELLA: 44.3 cm. GIRTH 6 SUPRAPATELLAR: 50.3. AROM : 7-105 supine knee flexion. MMT: ( peak force) quads 35.9,hamstrings 35.5 , - Goals Goal 1:: Patient to be I with HEP Goal Time Frame: 4-6 Weeks Goal 2:: Patient to normalize gait . Goal Time Frame: 4-6 Weeks Goal 3:: Patient increase AROM 0-115 degrees supine knee flexion to improve stairs Goal Time Frame: 4-6 Weeks Goal 4:: Patient to improve WOMAC by 10 points to improve QOL Goal Time Frame: 4-6 Weeks Goal 5:: Patient to improve LFES score by 10 points to improve gait . Goal Time Frame: 4-6 Weeks Goal 6:: Decrease edema less 2-3cm by to improve ROM knee Goal Time Frame: 4-6 Weeks - Rehabilitation Potential Physical Therapy Diagnosis: This patient s/p right TKA with decrease ROM ,strength ,decrease quality of gait and edema thus will benefit from skilled PT Rehabilitation Potential: Good - Anticipated Interventions Patient/Client Instruction: Educate patient on: Condition, Plan of Care For the Purpose of:: To decrease pain, To increase ROM, To improve muscle performance and motor function, To increase tolerance to activity/condition/position, To improve ability of physical actions for home/community/work/leisure, To improve health of tissue, To decrease soft tissue restriction, To increase flexibility/ROM, To improve balance Therapeutic Exercise to Include: Strength training, Endurance training, Balance training, Postural training, Flexibilty training, Gait and locomotor training, Passive ROM, Active ROM For the Purpose of:: To decrease pain, To increase ROM, To improve muscle performance and motor function, To increase tolerance to activity/condition/position, To improve health of tissue, To decrease soft tissue restriction, To increase flexibility/ROM, To improve endurance, To improve balance Thank you for the opportunity to evaluate your patient. For Medicare and Medicare HMO plans, please review the plan of care and approve it. It will need to be FAXED BACK to us at [phone] for Medicare purposes. For Medicare only, by signing this I certify the plan of care. Please let me know if there are questions or concerns regarding this plan of care. Physician Signature: Date:
--- NOTE | 2022-10-07 12:11 | HP.PTDCSUM_ITS ---
It has been my pleasure to treat YOAV DOUGHERTY referred by ADÁN ROUSSEAU, with the diagnosis of PRIMARY OSTEOARTHRITIS OF RIGHT KNEE for a total of 8 visit(s). Discharge Date: 10/07/22 Please see the following information for a summary of their discharge status. Subjective: Doing good ,have some warmth in knee Bilateral Knee Pain Intensity (Out of 10): 0 R hip Pain Intensity (Out of 10): 0 % Improvement: 80 Objective/Function: AROM: 0-120 supine knee flexion. MMT:(peak force) quads 53,8 ,hamstrings 40.1. GAIT: reciprocal gait. STAIRS : ascend/descend alternating Goal 1:: Patient to be I with HEP Goal Progress: Goal Met Goal 2:: Patient to normalize gait . Goal 3:: Patient increase AROM 0-115 degrees supine knee flexion to improve s tairs Goal Progress: Goal Met Goal 4:: Patient to improve WOMAC by 10 points to improve QOL Goal Progress: Goal Met Goal 5:: Patient to improve LFES score by 10 points to improve gait . Goal Progress: Goal Met Goal 6:: Decrease edema less 2-3cm by to improve ROM knee Goal Progress: Goal Met Plan: D/C Discharge Comments: hep If there are questions or concerns regarding this patient's physical therapy, please feel free to call me at [phone]. Thank you for the referral of this patient. Sincerely, Wilber Engel, PT, Cert MDT, OCS Balance/Gait/Functional tests - Balance/Special Test Scores Lower Extremity Functional Score: 64 Tug Test: <10 sec.=free mobile WOMAC Total Score: 0 WOMAC Percentage: 100
== END 2022-10-07 19:00 | disposition home or self-care (01) ==
LOC: PT 11:30
PROVIDERS: PCP Family Medicine
DX: M17.11 Unilateral primary osteoarthritis, right knee (principal); Z96.651 Presence of right artificial knee joint
CPT/HCPCS: 97110; 97162; 97530

== ENCOUNTER → 2022-10-21 | Outpatient (CLI) | payer MEDICARE, OTHER, SELFPAY | END | disposition home or self-care (01) | PROVIDERS: Referring Provider Nurse Practitioner Acute Care; Visit Provider Nurse Practitioner Acute Care | DX: G47.33 Obstructive sleep apnea (adult) (pediatric) (principal) ==

== ENCOUNTER → 2022-11-19 | Outpatient (CLI) | payer MEDICARE, OTHER, SELFPAY ==
[2022-11-19 16:14] LABS: Absolute Neutrophil Count 3.9 X10^3/uL (2.0-7.7); Basophil# 0.05 X10^3/uL; Basophil% 0.8 % (0-1); Eosinophil# 0.11 X10^3/uL; Eosinophils% 1.7 % (0-5); Hematocrit 43.2 % (40-54); Hemoglobin 14.1 g/dL (13.0-16.5); Lymphocyte % 27.9 % (19-41); Mean Corp Hgb Conc 32.6 g/dL (32-36); Mean Corpuscular Hgb 29.2 pg (27.0-32.0); Mean Corpuscular Volume 89.4 fL (80-94); Monocyte# 0.57 X10^3/uL; Monocyte% 8.8 % (0-10); NRBC Flagged by Analyzer 0 % (0-5); Neutrophil % 60.5 % (47-70); Platelet Count 175 K/mm3 (150-450); RBC Distribution Width SD 42.3 fl (35.1-43.9); Red Blood Count 4.83 M/mm3 (4.6-6.2); White Blood Count 6.5 K/mm3 (4.4-11.0)
[2022-11-19 16:53] LABS: Vitamin D,25 Hydroxy 44.7 ng/mL
[2022-11-19 16:59] LABS: Anion Gap 4 (5-15); BUN 33 mg/dL (7-18); Calcium,Total 9.3 mg/dL (8.5-10.1); Chloride 106 mmol/L (98-107); EST Glomerular Filtration Rate 48 mL/min (>60); Est Glom Filt Rate - Afr Amer 59 mL/min (>60); Free T3 2.6 pg/mL (2.18-3.98); Glucose 106 mg/dL (74-106); Potassium 4.8 mmol/L (3.5-5.1); Sodium Level 139 mmol/L (136-145)
== END | disposition home or self-care (01) ==
LOC: LAB 15:37
PROVIDERS: Referring Provider Nurse Practitioner Gerontology; Visit Provider Nurse Practitioner Gerontology
DX: R53.83 Other fatigue (principal); E55.9 Vitamin D deficiency, unspecified
CPT/HCPCS: 36415; 80048; 82306; 84439; 84443; 84481; 85025

== ENCOUNTER → 2023-01-03 | Outpatient (CLI) | payer MEDICARE, OTHER, SELFPAY ==
[2023-01-03 12:15] LABS: Erythrocyte Sedimentation Rate 2 mm/hr (0-20)
[2023-01-03 12:45] LABS: AST(SGOT) 16 U/L (15-37); Alanine Aminotransfer ALT/SGPT 13 U/L (16-61); Albumin, Serum 3.7 g/dL (3.2-5.0); Alkaline Phosphatase 100 U/L (45-117); Anion Gap 3 (5-15); BUN 22 mg/dL (7-18); BUN/Creat Ratio 16.4 RATIO (10-20); CRP 6.39 mg/L (0.0-3.0); Calcium,Total 9.5 mg/dL (8.5-10.1); Chloride 105 mmol/L (98-107); Creatinine, Serum 1.34 mg/dL (0.70-1.30); EST Glomerular Filtration Rate 55 mL/min (>60); Est Glom Filt Rate - Afr Amer 67 mL/min (>60); Globulin 3.6 g/dL (2.2-4.2); Glucose 116 mg/dL (74-106); Potassium 4.8 mmol/L (3.5-5.1); Protein, Total 7.3 g/dL (6.4-8.2); Sodium Level 138 mmol/L (136-145)
== END | disposition home or self-care (01) ==
LOC: BIMLAB 11:24
PROVIDERS: PCP Internal Medicine; Referring Provider Internal Medicine; Visit Provider Internal Medicine
DX: I10 Essential (primary) hypertension (principal); M35.3 Polymyalgia rheumatica
CPT/HCPCS: 36415; 80053; 85652; 86140

== ENCOUNTER → 2023-01-07 | Outpatient (CLI) | payer MEDICARE, OTHER, SELFPAY ==
--- NOTE | 2023-01-07 13:18 | US_ITS ---
STUDY: THYROID ULTRASOUND REASON FOR EXAM: Male, 77 years old. thyroid US TECHNIQUE: Ultrasound evaluation of the thyroid was performed with real-time and static barillas-scale imaging. COMPARISON: None. FINDINGS: RIGHT LOBE: The right lobe of the thyroid gland measures 6.0 x 2.2 x 2.4 cm. There is a heterogeneous echotexture. Nodule 1:12 x 8 x 10 mm solid hypoechoic wider than tall ill-defined margin nodule with no echogenic foci (TR 4) in the posterior right lobe and follow-up ultrasound is recommended in one year. Nodule 2:20 x 20 x 17 mm mixed cystic and solid isoechoic taller than wide ill-defined margin nodule with no echogenic foci (TR 4) in the mid right lobe for which ultrasound-guided biopsy is recommended if never performed. Nodule 3:18 x 16 x 18 mm solid isoechoic wider than tall ill-defined margin nodule with no echogenic foci (TR 3) in the medial right lobe and follow-up ultrasound is recommended in one year. LEFT LOBE: The left lobe of the thyroid gland measures 5.9 x 2.5 x 2.3 cm. There is a heterogeneous echotexture. Nodule 4:16 x 8 x 12 mm solid isoechoic wider than tall ill-defined margin nodule with no echogenic foci (TR 3) in the lateral left lobe and follow-up ultrasound is recommended in one year. Nodule 5:34 x 21 x 25 mm solid isoechoic wider than tall ill-defined margin nodule with no echogenic foci (TR 3) in the mid left lobe for which ultrasound-guided biopsy is recommended if never performed. ISTHMUS: The isthmus measures 7 mm thick. . The regional lymph nodes are normal. US/Thyroid IMPRESSION: Multinodular thyroid gland with multiple dominant nodules for which ultrasound-guided biopsy is recommended if never performed. Follow-up ultrasound is recommended in one year. Electronically Signed: Tito Lee MD at 9:07 EDT ,
== END | disposition home or self-care (01) ==
LOC: US 13:17
PROVIDERS: PCP Internal Medicine; Referring Provider Internal Medicine; Visit Provider Internal Medicine
DX: E04.9 Nontoxic goiter, unspecified (principal)
CPT/HCPCS: 76536

== ENCOUNTER → 2023-02-03 | Outpatient (CLI) | payer MEDICARE, OTHER, SELFPAY | END | disposition home or self-care (01) | LOC: SL 20:10 | PROVIDERS: PCP Internal Medicine; Referring Provider Nurse Practitioner Acute Care; Visit Provider Nurse Practitioner Acute Care | DX: G47.33 Obstructive sleep apnea (adult) (pediatric) (principal) | CPT/HCPCS: 95811 ==

== ENCOUNTER → 2023-03-17 | Outpatient (CLI) | payer MEDICARE, OTHER, SELFPAY ==
[2023-03-17 15:45] LABS: Absolute Lymphocyte Count 1.31 X10^3/uL (0.83-4.51); Basophil# 0.03 X10^3/uL; Basophil% 0.4 % (0-1); Eosinophil# 0.04 X10^3/uL; Eosinophils% 0.6 % (0-5); Hematocrit 42.1 % (40-54); Hemoglobin 14.3 g/dL (13.0-16.5); Lymphocyte # 1.31 X10^3/ul (0.83-4.51); Lymphocyte % 18.7 % (19-41); Mean Corpuscular Hgb 29.9 pg (27.0-32.0); Mean Corpuscular Volume 87.9 fL (80-94); Mean Platelet Vol. 10.8 fl (6.2-12.0); Monocyte# 0.57 X10^3/uL; Monocyte% 8.1 % (0-10); NRBC Flagged by Analyzer 0 % (0-5); Neutrophil # 5.02 X10^3/uL (2.7-7.7); Neutrophil % 71.5 % (47-70); Platelet Count 186 K/mm3 (150-450); RBC Distribution Width CV 13.2 % (11.6-14.6); RBC Distribution Width SD 42.2 fl (35.1-43.9); Red Blood Count 4.79 M/mm3 (4.6-6.2)
[2023-03-17 16:34] LABS: Anion Gap 5 (5-15); BUN 26 mg/dL (7-18); BUN/Creat Ratio 19.5 RATIO (10-20); Calcium,Total 9.5 mg/dL (8.5-10.1); Chloride 108 mmol/L (98-107); Creatinine, Serum 1.33 mg/dL (0.70-1.30); EST Glomerular Filtration Rate 56 mL/min (>60); Est Glom Filt Rate - Afr Amer 67 mL/min (>60); Free T3 2.9 pg/mL (2.18-3.98); Glucose 130 mg/dL (74-106); Potassium 4.8 mmol/L (3.5-5.1); Sodium Level 140 mmol/L (136-145); T4 Free Direct 1.07 ng/dL (0.76-1.46)
== END | disposition home or self-care (01) ==
LOC: LAB 14:53
PROVIDERS: PCP Internal Medicine; Visit Provider Nurse Practitioner Gerontology
DX: R53.83 Other fatigue (principal)
CPT/HCPCS: 36415; 80048; 84439; 84443; 84481; 85025

== ENCOUNTER 2023-03-22 06:19 | Day surgery (SDC) | payer MEDICARE, OTHER, SELFPAY ==
[2023-03-22] VITALS (9 sets, daily range): BP systolic 78–130; BP diastolic 45–71; PULSE 58–68; RESP 16–18; TEMP 36.3–36.6; O2SAT 92–99; BMI 29.5
[2023-03-22] MEDS: Lactated Ringers 1,000 ML 15 ML IV (06:44)
--- NOTE | 2023-03-22 07:29 | HP.PCM_ITS ---
History and Physical Date of Admission: 03/22/23 Date of Service: 01/21/23 MR#: [id number] Acct: [id number] Name: YOAV ARTEAGA Rep #: [id number] : 1945 Provider: Dr. 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 Required: No Is patient in pain?: No Allergies bee venom protein (honey bee) Allergy (Severe, Verified 01/21/23 13:07) AnaphylaxisAnesthetics - Amide Type - Select A Allergy (Unknown, Verified 01/21/23 13:07) Other Medications epinephrine 0.15 mg/0.15 mL auto-injector (for 33 to 66 lb patients) 0.15 ml IM ONCE PRN hypersensitivity reaction 03/31/22 [History Confirmed 01/21/23] aspirin 81 mg tablet,delayed release (Adult Aspirin Regimen) 81 mg PO DAILY For Cardiac Catheterization #10 tabs 06/09/22 [Rx Confirmed 01/21/23] doxazosin 4 mg tablet (Cardura) 4 mg PO DAILY #90 tabs 09/13/22 [Rx Confirmed 01/21/23] amlodipine 5 mg tablet 5 mg PO DAILY BP #90 tabs 11/19/22 [Rx Confirmed 01/21/23] prednisone 10 mg tablet See Rx Instructions PO .COMPLEX polymyalgia #105 tabs 01/05/23 [Rx Confirmed 01/21/23] atorvastatin 40 mg tablet 40 mg PO QHS CHOLESTEROL #90 tabs 01/18/23 [Rx Confirmed 01/21/23] lisinopril 20 mg tablet 20 mg PO DAILY #90 tabs 01/18/23 [Rx Confirmed 01/21/23] omeprazole 20 mg capsule,delayed release 20 mg PO DAILY #90 caps 01/18/23 [Rx Confirmed 01/21/23] apixaban 5 mg tablet (Eliquis) 5 mg PO BID #180 tabs 01/20/23 [Rx Confirmed 01/21/23] metoprolol succinate 25 mg tablet,extended release 24 hr 25 mg PO DAILY #90 tabs 01/20/23 [Rx Confirmed 01/21/23] [facility] Medical History (Updated 01/21/23 @ 17:[address] James Mercer MD) Atherosclerotic heart disease of [place] coronary artery without angina pectoris CAD (coronary artery disease) Cervical spine degeneration Chronic renal disease, stage III Conduction disorder of the heart Dizziness Essential (primary) hypertension Goiter History of left heart catheterization (LHC) (~06/15/22) History of melanoma Hypercholesterolemia Lumbar degenerative disc disease PMR (polymyalgia rheumatica) Prostate cancer Pure hypercholesterolemia PVC (premature ventricular contraction) Right hip pain Skin lesion Syncope Thyroid disease Vascular disease Ventricular tachycardia Vision problems Surgical History (Updated 01/21/23 @ 13:06 by Lakeisha Turner) H/O inguinal hernia repair History of colonoscopy History of lumbar discectomy (~1987) History of prostatectomy (~06/2006) History of skin cancer (~02/2007) History of tonsillectomy History of total right knee replacement (TKR) (~07/2022) Hx of toe surgery Family History Mother Cancer BrainBrother CAD (coronary artery disease) stents HypertensionSister Arthritis Thyroid disorder Rheumatoid arthritisFather , 70 Hypertension AAA (abdominal aortic aneurysm) CRF (chronic renal failure) Alcoholism Heart disease CVA (cerebral vascular accident)Grandmother Rheumatoid arthritis Social History household members: spouse current occupational status: retired 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 They are referred for surgical consultation from Dr. Vergara. Patient has had prior colonoscopy in 2013 (in 5 years prior to this). The results of this prior colonoscopy reportedly pancolonic diverticulosis as well as an increased presence of mast cells. Patient has no personal history of colon cancer, inflammatory bowel disease, or diverticulitis. They describe their bowel habits as normal. They have approximately 1 bowel movement per day and spend minimal on the toilet without significant straining. They have not noticed recent bleeding or dark stools. They do not regularly take fiber supplements. They do not consume significant fiber in their regular diet. Patient has a family history of colon cancer in a maternal aunt. He believes this individual was diagnosed between the fifth and 6 decades of life. He is otherwise unable to recall many details. There is no family history of inflammatory bowel disease or diverticulitis. The patient's weight is stable. The patient is prescribed anticoagulants with Eliquis. Mr. Arteaga describes how he was diagnosed with atrial fibrillation after not feeling well for the past 2 to 3 weeks. 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 With cardiology he underwent EKG and was diagnosed with this arrhythmia. He was informed that he should plan to begin Eliquis in an uninterrupted fashion for at least 6 weeks. Apparently there have also been some discussions around possible ablation. Mr. Arteaga notes this not the first time that he has been diagnosed with an arrhythmia and had a fainting spell in November of last year. He reports seeing Dr. Balbuena and undergoing remote telemetry monitoring until he was observed to exhibit signs of heart block and was emergently summoned to the hospital. He reports two heart catheterizations were performed and he was recommended a pacemaker, however this recommendation fell by the [place] as he then underwent knee replacement. Relevant prior abdominal surgical history includes: Inguinal hernia repair and transabdominal prostatectomy Patient does have a significant history of GERD. He states that he has been on omeprazole for many years. He reports a prior EGD 15 years ago with his first colonoscopy. He believes that he was found to have a gastric polyp. Since that time he experiences occasional (further clarified as approximately 1 time per week) reflux. He notes that he had more reflux during his knee replacement in July. Beyond reflux, however, he reports that he has been having some left upper quadrant discomfort the past few months. He feels this discomfort is more pronounced with burping or eating. He has raised this issue with cardiology, but the reportedly do not feel this is cardiac in nature. Mr. Arteaga confirms that he is trying to avoid eating late at night, but is not doing necessarily the best job of avoiding trigger foods. He notes that his experience of bloating is minimal, but does have some occasional nausea. Beyond all of the above, Mr. Arteaga reports that he recently went through with a repeat thyroid ultrasound and has been informed that he may require biopsies for this issue. He notes that he underwent biopsy of one nodule at [facility] several years ago but is unable to provide further detail. ROS General General: Yes fatigue; No weight change, appetite, colon cancer, breast cancer or weakness HEENT HEENT: No difficulty swallowing, eye injury, eye surgery, swollen glands or hoarseness Endo Endocrine: Yes thyroid disease; No diabetes mellitus, thyroid cancer, Hair loss, heat intolerance or cold intolerance Skin Skin: No rash or changing moles Breast Breast: No left breast lump, right breast lump, nipple discharge, breast pain, abnormal mammogram, abnormal US or breast enlargement Musc Musculoskeletal: Yes back problems and arthritis; No rheumatoid arthritis, gout or joint pain Cardio Cardiovascular: Yes heart disease, atrial fibrillation and high blood pressure; No murmur, pacemaker, heart attack, heart stent, palpitations, shortness of breat with exertion or chest pain Psych Psychiatric: No depression, anxiety or hearing voices Resp Respiratory: Yes shortness of breath, Yes sleep apnea, No cough, No COPD, No asthma, No emphysema and No wheezing Additional Details: Placed on CPAP Gastro Gastrointestinal: No abdominal pain, No nausea or vomiting, No diarrhea, No constipation, No blood in stool, No acid reflux, No hemorrhoids, No ulcers, No gallbladder problem and No black,tarry stools Jay Hematologic: Yes blood thinners, No blood disorders, No bleeding, No anemia and No blood clots Additional Details: Eliquis Neuro Neurologic: No system reviewed and no additional complaints, except as documented, No as per HPI, No abnormal gait, No abnormal hearing, No abnormal movements, No abnormal speech, No behavioral changes, No burning sensations, No confusion, No convulsions, No disequilibrium, No dizziness, No localized weakness, No frequent falls, No headache(s), No lack of coordination, No loss of vision, No memory loss, No numbness, No other visual disturbances, No radicular pain, No restless legs, No sensory deficit, No syncope, No tingling, No tremor(s), No weakness and No other Exam Const General: cooperative and anxious Orientation: alert, awake and oriented x3 Resp Effort & Inspection: normal respiratory effort Cardio Rhythm: abnormal rhythm irregularly irregular GI Inspection: non-distended and scar (Well-healed port site scars) Palpation: soft and nontender Assessment and Plan Assessment and Plan (1) Encounter for screening for malignant neoplasm of colon: Status: Acute Comment: This is a 77-year-old male with an apparent history of diverticulosis who presents for update of his screening colonoscopy?last colonoscopy coming 10 years ago. Mr. Arteaga appears to be at about average risk for colon cancer, bu t does have history of a maternal aunt who was diagnosed with colon cancer before the age of 60. He denies any present GI complaints for himself. Given the absence of any complaints, and the ongoing work-up for his cardiac arrhythmia/ongoing need for anticoagulation I have suggested that we await a conclusion with this work-up before pursuing colonoscopy. With that understood, I have offered to schedule him for a colonoscopy in mid February and then move this date if there are significant developments in his cardiac management. If not occur and he is simply required to maintain his anticoagulation for 6 weeks, then I would be okay updating his H&P at the time of his procedure. Plan: ? Plan will be to complete colonoscopy in mid February under local MAC. Pre- procedure prep discussed and paper instructions provided. Patient is also made aware that he will need to have a otr refrigerated cdl truck driver with him the day of the procedure. (2) Left upper quadrant abdominal pain: Status: Acute Comment: Patient has a history of chronic GERD on omeprazole. He complains of left upper quadrant abdominal discomfort. Apparently he has been informed this is likely noncardiac in etiology. He has no tenderness on exam, however when I gesture to the vicinity of the stomach, he confirms this is where his discomfort is felt. Given this report, and maintained some suspicion for possible peptic ulcer disease. Based on the suspicion, I do recommend concurrent EGD with colonoscopy as discussed above. Plan: EGD concurrent with colonoscopy as above (3) Thyroid disease: Status: Acute Comment: Patient has a history of thyroid nodularity and is status post FNA of a right thyroid nodule at [facility]. Unfortunately, he has not had the ability to review his records and time does not permit a full review as well as exam for this issue. Therefore, I have recommended deferring this issue to a later consultation visit. I have shared with Mr. Arteaga that it is generally the case that we perform any required biopsies at the time of his consultation visit and his Eliquis precludes that is a possibility. This being the case, I recommend that we postpone this thyroid evaluation until he is able to interrupt his anticoagulation. In the meantime I will gather and review his records. Plan: ? Follow-up visit once anticoagulation is able to be interrupted for thyroid nodule FNA biopsy I have examined the patient and the H&P has been reviewed. There are no clinical changes since date of exam. Mr. Arteaga denies any new concerns and actually reports that his left upper quadrant discomfort has improved. Further, he denies any difficulties with his prep and confirms that he has now achieved a clear output with his bowel movements. Lastly he confirms that he has held his Eliquis for requested 48 hours preprocedure and denies any questions going into our planned upper and lower scopes. Therefore we will proceed to the endoscopy suite as scheduled.
--- NOTE | 2023-03-22 07:30 | IMM_PTH ---
PATIENT: YOAV DOUGHERTY LOC: EN U#:[id number] AGE/SX: 77/M ROOM: RE03/22/[address]: Dr. James Mercer MD : 1945 BED: DIS: 03/22/2023 SPEC #: [id number] RECD: 03/22/23 13:58 STATUS: MAKEDA ISELA #: [id number] GENE: 03/22/23 07:[address]: James Mercer DEPT: IMMUNOHISTOCHEMISTRY RECD BY: Obdulia Bolivar ENTERED: 03/22/23 13:59 SP TYPE: IMMUNO OTHR DR: Dr. Amanda Vergara MD Tissues: B - Stomach, NOS Procedures: H Pylori (initial) PHYSICIAN & INSTITUTION [place] [id number] SPECIMEN INFORMATION: Tissue Source: B - Antrum Clinical Info: Screening, LUQ abdominal pain Specimen Number: [id number] CPT code: 07460 METHODOLOGY: Deparaffinized sections of prefer/formalin-fixed tissue or PAP/DQ stained slides are incubated with monoclonal/polyclonal antibodies/oligonucleotide probes. Localization is made via biotin free immunoperoxidase method. Appropriate controls are performed and reacted as expected. Results on target cell population are indicated in the following table: RESULTS: ANTIBODY / CLONE RESULT Block B H Pylori (polyclonal) negative These tests were developed and their performance characteristics determined by [facility]. They may not have been cleared or approved by the U.S. Food and Drug Administration. The FDA has determined that such clearance or approval is not necessary. The above immunohistochemical/dualISH markers are ordered and reviewed by the Pathologist. INTERPRETATION: B. Antrum, biopsy: Negative for Helicobacter pylori organisms. SJ:jayme 03/23/2023
--- NOTE | 2023-03-22 08:43 | OP.CCLET_ITS ---
03/22/2023 Amanda Vergara Md Re : Upper GI endoscopy procedure for Tito Arteaga Dear Jai This procedure was performed on Wednesday, March 22, 2023. My impressions and recommendations are as follows: Impressions : - Normal duodenal bulb, first portion of the duodenum and second portion of the duodenum. No specimens collected. - A single mucosal papule (nodule) found in the stomach. Biopsied. - Erythematous mucosa in the antrum. Biopsied. - Discolored mucosa in the antrum. Biopsied. - Multiple gastric polyps. Resected and retrieved. - Medium-sized hiatal hernia. - Z-line regular, 42 cm from the incisors. No specimens collected. - Multiple plaques in the lower third of the esophagus. Biopsied. - Grade II esophageal varices. No specimens collected. Recommendations : - Discharge patient to home (via wheelchair). - Resume previous diet today. - Resume Eliquis (apixaban) at prior dose in 2 days. Refer to managing physician for further adjustment of therapy. - Await pathology results. - Telephone my office for pathology results in 1 week. My findings are described in the full procedure note, which is enclosed. If I can be of further assistance, please feel free to contact me at Doctor phone number(s): , Work: . Sincerely, James Mercer MD 03/22/2023 8:43:02 AM This report has been signed electronically.
--- NOTE | 2023-03-22 08:43 | OP.EGD_ITS ---
Patient Name: Tito Arteaga Procedure Date: 03/22/2023 7:22 AM Date of : 1945 Age: 77 Procedure: Upper GI endoscopy Indications: Abdominal pain in the left upper quadrant, Gastro-esophageal reflux disease Providers: James Mercer MD Referring MD: Amanda Vergara Md Medicines: See the Anesthesia note for documentation of the administered medications Patient Profile: Refer to note in patient chart for documentation of history and physical. Complications: No immediate complications. Estimated blood loss: Minimal. Procedure: Pre-Anesthesia Assessment: - The heart rate, respiratory rate, oxygen saturations, blood pressure, adequacy of pulmonary ventilation, and response to care were monitored throughout the procedure. After obtaining informed consent, the endoscope was passed under direct vision. Throughout the procedure, the patient's blood pressure, pulse, and oxygen saturations were monitored continuously. The Colonoscope was introduced through the mouth, and advanced to the second part of duodenum. The upper GI endoscopy was accomplished without difficulty. The patient tolerated the procedure well. Scope In: 7:36:31 AM Scope Out: 8:00:06 AM Total Procedure Duration Time 0 hours 23 minutes 35 seconds Findings: The duodenal bulb, first portion of the duodenum and second portion of the duodenum were normal. No biopsies or other specimens were collected for this exam. A single 3 mm mucosal papule (nodule) with no bleeding and no stigmata of recent bleeding was found in the gastric antrum. The nodule was Jeannie classification Is (protruding, sessile). Biopsies were taken with a cold forceps for histology. Estimated blood loss was minimal. Localized mildly erythematous mucosa without bleeding was found in the gastric antrum. Biopsies were taken with a cold forceps for Helicobacter pylori testing. Estimated blood loss was minimal. Localized mild mucosal changes characterized by discoloration were found in the gastric antrum. Biopsies were taken with a cold forceps for histology. Estimated blood loss was minimal. Multiple 3 to 10 mm pedunculated and sessile polyps with no bleeding and no stigmata of recent bleeding were found in the gastric fundus, in the gastric body and on the greater curvature of the stomach. The polyp was removed with a hot snare. Resection and retrieval were complete using a suction (via the working channel). A medium-sized hiatal hernia was present. The Z-line was regular and was found 42 cm from the incisors. No biopsies or other specimens were collected for this exam. Multiple 5 mm plaques were found in the lower third of the esophagus, 40 cm from the incisors. Biopsies were taken with a cold forceps for histology. Estimated blood loss was minimal. Grade II varices were found in the middle third of the esophagus and in the lower third of the esophagus. They were 5 mm in largest diameter. No biopsies or other specimens were collected for this exam. Impression: - Normal duodenal bulb, first portion of the duodenum and second portion of the duodenum. No specimens collected. - A single mucosal papule (nodule) found in the stomach. Biopsied. - Erythematous mucosa in the antrum. Biopsied. - Discolored mucosa in the antrum. Biopsied. - Multiple gastric polyps. Resected and retrieved. - Medium-sized hiatal hernia. - Z-line regular, 42 cm from the incisors. No specimens collected. - Multiple plaques in the lower third of the esophagus. Biopsied. - Grade II esophageal varices. No specimens collected. Recommendation: - Discharge patient to home (via wheelchair). - Resume previous diet today. - Resume Eliquis (apixaban) at prior dose in 2 days. Refer to managing physician for further adjustment of therapy. - Await pathology results. - Telephone my office for pathology results in 1 week. Procedure Code(s): --- Professional --- 56734, Esophagogastroduodenoscopy, flexible, transoral; with removal of tumor(s), polyp(s), or other lesion(s) by snare technique 01196, 59, Esophagogastroduodenoscopy, flexible, transoral; with biopsy, single or multiple Diagnosis Code(s): --- Professional --- K31.89, Other diseases of stomach and duodenum K31.7, Polyp of stomach and duodenum K44.9, Diaphragmatic hernia without obstruction or gangrene K22.89, Other specified disease of esophagus I85.00, Esophageal varices without bleeding R10.12, Left upper quadrant pain K21.9, Gastro-esophageal reflux disease without esophagitis CPT copyright 2021 [employer]. All rights reserved. The codes documented in this report are preliminary and upon image consultant review may be revised to meet current compliance requirements. James Mercer MD 03/22/2023 8:43:02 AM This report has been signed electronically. Number of Addenda: 0 Note Initiated On: 03/22/2023 7:22 AM
--- NOTE | 2023-03-22 08:52 | OP.COLON_ITS ---
Patient Name: Tito Arteaga Procedure Date: 03/22/2023 8:01 AM Date of : 1945 Age: 77 Procedure: Colonoscopy Indications: Screening for colorectal malignant neoplasm Providers: James Mercer MD Referring MD: Amanda Vergara Md Medicines: See the Anesthesia note for documentation of the administered medications Patient Profile: Refer to note in patient chart for documentation of history and physical. Last Colonoscopy: 10 years ago. Complications: No immediate complications. Estimated blood loss: Minimal. Procedure: Pre-Anesthesia Assessment: - The heart rate, respiratory rate, oxygen saturations, blood pressure, adequacy of pulmonary ventilation, and response to care were monitored throughout the procedure. - The heart rate, respiratory rate, oxygen saturations, blood pressure, adequacy of pulmonary ventilation, and response to care were monitored throughout the procedure. After I obtained informed consent, the scope was passed under direct vision. Throughout the procedure, the patient's blood pressure, pulse, and oxygen saturations were monitored continuously. The Colonoscope was introduced through the anus and advanced to the cecum, identified by appendiceal orifice and ileocecal valve. The colonoscopy was performed without difficulty. The patient tolerated the procedure well. The quality of the bowel preparation was adequate to identify polyps. Scope In: 8:02:20 AM Scope Withdrawal Time 0 hours 13 minutes 36 seconds Scope Out: 8:27:53 AM Total Procedure Duration Time 0 hours 25 minutes 33 seconds Findings: Skin tags were found on perianal exam. A 7 mm, non-bleeding polyp was found in the sigmoid colon. The polyp was pedunculated. The polyp was removed with a hot snare. Resection and retrieval were complete. Estimated blood loss was minimal. A 5 mm polyp was found in the transverse colon. The polyp was semi-pedunculated. The polyp was removed with a hot snare. Resection and retrieval were complete. Estimated blood loss was minimal. Discontinuous areas of nonbleeding ulcerated mucosa with no stigmata of recent bleeding were present in the ascending colon. Biopsies were taken with a cold forceps for histology. Estimated blood loss was minimal. Many small and large-mouthed diverticula were found in the entire colon. No biopsies or other specimens were collected for this exam. Localized pseudopolyps were found in the sigmoid colon. This was biopsied with a cold forceps for histology. Estimated blood loss was minimal. Impression: - Perianal skin tags found on perianal exam. - One 7 mm, non-bleeding polyp in the sigmoid colon, removed with a hot snare. Resected and retrieved. - One 5 mm polyp in the transverse colon, removed with a hot snare. Resected and retrieved. - Mucosal ulceration. Biopsied. - Diverticulosis in the entire examined colon. No specimens collected. - Pseudopolyps in the sigmoid colon. Biopsied. Recommendation: - Discharge patient to home (via wheelchair). - High fiber diet today. - Resume Eliquis (apixaban) at prior dose in 2 days. Refer to managing physician for further adjustment of therapy. - Await pathology results. - Repeat colonoscopy date to be determined after pending pathology results are reviewed for surveillance based on pathology results. - Telephone my office for pathology results in 1 week. Procedure Code(s): --- Professional --- 68249, Colonoscopy, flexible; with removal of tumor(s), polyp(s), or other lesion(s) by snare technique 83165, 59, Colonoscopy, flexible; with biopsy, single or multiple Diagnosis Code(s): --- Professional --- Z12.11, Encounter for screening for malignant neoplasm of colon D12.5, Benign neoplasm of sigmoid colon D12.3, Benign neoplasm of transverse colon (hepatic flexure or splenic flexure) K63.3, Ulcer of intestine K51.40, Inflammatory polyps of colon without complications K64.4, Residual hemorrhoidal skin tags K57.30, Diverticulosis of large intestine without perforation or abscess without bleeding CPT copyright 2021 [employer] [employer]. All rights reserved. The codes documented in this report are preliminary and upon desktop support consultant review may be revised to meet current compliance requirements. James Mercer MD 03/22/2023 8:51:24 AM This report has been signed electronically. Number of Addenda: 0 Note Initiated On: 03/22/2023 8:01 AM
--- NOTE | 2023-03-22 08:52 | OP.CCLET_ITS ---
03/22/2023 Amanda Vergara Md Re : Colonoscopy procedure for Tito Arteaga Dear Jai This procedure was performed on Wednesday, March 22, 2023. My impressions and recommendations are as follows: Impressions : - Perianal skin tags found on perianal exam. - One 7 mm, non-bleeding polyp in the sigmoid colon, removed with a hot snare. Resected and retrieved. - One 5 mm polyp in the transverse colon, removed with a hot snare. Resected and retrieved. - Mucosal ulceration. Biopsied. - Diverticulosis in the entire examined colon. No specimens collected. - Pseudopolyps in the sigmoid colon. Biopsied. Recommendations : - Discharge patient to home (via wheelchair). - High fiber diet today. - Resume Eliquis (apixaban) at prior dose in 2 days. Refer to managing physician for further adjustment of therapy. - Await pathology results. - Repeat colonoscopy date to be determined after pending pathology results are reviewed for surveillance based on pathology results. - Telephone my office for pathology results in 1 week. My findings are described in the full procedure note, which is enclosed. If I can be of further assistance, please feel free to contact me at Doctor phone number(s): , Work: . Sincerely, James Mercer MD 03/22/2023 8:51:24 AM This report has been signed electronically.
--- NOTE | 2023-03-22 11:28 | EGD_PTH ---
PATIENT: YOAV DOUGHERTY LOC: EN U#:[id number] AGE/SX: 77/M ROOM: RE03/22/[address]: Dr. James Mercer MD : 1945 BED: DIS: 03/22/2023 SPEC #: [id number] RECD: 03/22/23 13:05 STATUS: MAKEDA ISELA #: [id number] GENE: 03/22/23 11:[address]: James Mercer DEPT: SURGICAL PATHOLOGY RECD BY: Emilio Hauser ENTERED: 03/22/23 13:09 SP TYPE: EGD BIOPSY OT DR: Dr. Amanda Vergara MD Tissues: A - Gastric mucous membrane B - Gastric mucous membrane C - Gastric mucous membrane D - Esophagus, NOS E - Gastric mucous membrane F - Sigmoid colon biopsy G - Transverse colon H - COLON BIOPSY I - Sigmoid colon biopsy Procedures: Special Stain Group II Surgery Specimen Level IV Alcian Blue/PAS (control) HEADER OPERATION: Colonoscopy with biopsy and polypectomy, EGD with biopsy PRE-OP DIAGNOSIS: Screening, LUQ abdominal pain TISSUE SUBMITTED: A - Antrum nodule biopsy, B - Antrum biopsy for H. pylori and path, C - Gastric body polyps, D - Distal esophageal plaque biopsy, E - Greater curvature body change in mucosa biopsy, F - Sigmoid colon polyp, G - Transverse polyp, H - Ascending colon, I - Distal sigmoid mucosa MICROSCOPIC DIAGNOSIS A. Antrum nodule, biopsy: Minimal gastritis. See microscopic description. B. Antrum biopsy: Mild gastritis. See microscopic description and comment. C. Gastric body polyps, biopsy: Fragments of fundic gland polyp. D. Distal esophageal plaque, biopsy: Fragments of gastroesophageal mucosa with chronic inflammation. Intestinal metaplasia (goblet cell metaplasia) not identified. See comment. E. Greater curvature body change in mucosa, biopsy: Minimal gastritis. See microscopic description. F. Sigmoid colon polyp, biopsy: Tubular adenoma. G. Transverse colon polyp, biopsy: Fragments of tubular adenoma. H. Ascending colon, biopsy: A fragment of colonic mucosa, no pathologic diagnosis. I. Distal sigmoid mucosa, biopsy: Fragments of colonic mucosa, no pathologic diagnosis. SJ:rg 03/23/2023 COMMENT B. The results of immunohistochemistry for Helicobacter pylori will be reported separately ([id number]). D. Alcian blue/PAS stain with matched control is used in the evaluation of the specimen. MICROSCOPIC DESCRIPTION Slides are reviewed. A. The specimen shows fragments of gastric mucosa with chronic inflammatory cell infiltrates in the lamina propria consisting of lymphocytes and plasma cells, consistent with minimal chronic gastritis. B. The specimen shows fragments of gastric mucosa with chronic inflammatory cell infiltrates in the lamina propria consisting of lymphocytes and plasma cells, consistent with mild chronic gastritis. E. The specimen shows fragments of gastric mucosa with chronic inflammatory cell infiltrates in the lamina propria consisting of lymphocytes and plasma cells, consistent with minimal chronic gastritis. GROSS DESCRIPTION A - Received in fixative is one container labeled with the patient's name and designated antrum nodule biopsy. The specimen consists of one irregular fragment of light bond soft tissue that measures 0.3 x 0.2 x 0.1 cm. The specimen is totally submitted in one cassette. B - Received in fixative is one container labeled with the patient's name and designated antrum biopsy. The specimen consists of two irregular fragments of light bond soft tissue that in aggregate measure 0.6 x 0.3 x 0.1 cm. The specimen is totally submitted in one cassette. C - Received in fixative is one container labeled with the patient's name and designated gastric body polyps. The specimen consists of multiple irregular fragments of light bond soft tissue that in aggregate measure 2.5 x 0.8 x 0.3 cm. The specimen is totally submitted in one cassette. D - Received in fixative is one container labeled with the patient's name and designated distal esophageal plaque biopsy. The specimen consists of two irregular fragments of light bond soft tissue that in aggregate measure 0.5 x 0.2 x 0.1 cm. The specimen is totally submitted in one cassette. E - Received in fixative is one container labeled with the patient's name and designated greater curvature body change in mucosa biopsy. The specimen consists of two irregular fragments of light bond soft tissue that in aggregate measure 0.6 x 0.3 x 0.1 cm. The specimen is totally submitted in one cassette. F - Received in fixative is one container labeled with the patient's name and designated sigmoid colon polyp. The specimen consists of one irregular fragment of light bond soft tissue that measures 0.3 x 0.3 x 0.1 cm. The specimen is totally submitted in one cassette. G - Received in fixative is one container labeled with the patient's name and designated transverse polyp. The specimen consists of multiple irregular fragments of light bond soft tissue that in aggregate measure 1.5 x 0.3 x 0.1 cm. The specimen is totally submitted in one cassette. H - Received in fixative is one container labeled with the patient's name and designated ascending colon biopsy. The specimen consists of one irregular fragment of light bond soft tissue that measures 0.3 x 0.3 x 0.1 cm. The specimen is totally submitted in one cassette. I - Received in fixative is one container labeled with the patient's name and designated distal sigmoid mucosa biopsy. The specimen consists of two irregular fragments of light bond soft tissue that in aggregate measure 0.6 x 0.2 x 0.1 cm. The specimen is totally submitted in one cassette. / SJ:rg 03/22/2023 TC:1 CPT: 76181 x9, 01374
== END 2023-03-22 09:47 | disposition home or self-care (01) ==
LOC: EN 06:19 → AC 06:20
PROVIDERS: PCP Internal Medicine; Referring Provider Internal Medicine; Visit Provider Surgery
PROC: 0DJD8ZZ Inspection of Lower Intestinal Tract, Via Natural or Artificial Opening Endoscopic (ICD-10-PCS; CPT 45378; principal; 2023-03-22 07:25)
DX: Z12.11 Encounter for screening for malignant neoplasm of colon (principal); I85.00 Esophageal varices without bleeding; I48.91 Unspecified atrial fibrillation; N18.30 Chronic kidney disease, stage 3 unspecified; K44.9 Diaphragmatic hernia without obstruction or gangrene; K21.9 Gastro-esophageal reflux disease without esophagitis; Z80.0 Family history of malignant neoplasm of digestive organs; I25.10 Atherosclerotic heart disease of native coronary artery without angina pectoris; E78.00 Pure hypercholesterolemia, unspecified; K57.30 Diverticulosis of large intestine without perforation or abscess without bleeding; K63.5 Polyp of colon; I12.9 Hypertensive chronic kidney disease with stage 1 through stage 4 chronic kidney disease, or unspecified chronic kidney disease; K31.7 Polyp of stomach and duodenum; Z79.899 Other long term (current) drug therapy; Z79.01 Long term (current) use of anticoagulants; Z85.46 Personal history of malignant neoplasm of prostate; Z90.79 Acquired absence of other genital organ(s); Z96.651 Presence of right artificial knee joint; Z85.828 Personal history of other malignant neoplasm of skin; R10.12 Left upper quadrant pain; Z99.89 Dependence on other enabling machines and devices; K64.4 Residual hemorrhoidal skin tags; K63.3 Ulcer of intestine; K31.89 Other diseases of stomach and duodenum; K22.89 Other specified disease of esophagus; K29.70 Gastritis, unspecified, without bleeding; K31.A0 Gastric intestinal metaplasia, unspecified; D12.5 Benign neoplasm of sigmoid colon; D12.3 Benign neoplasm of transverse colon
CPT/HCPCS: 45380; 43239; 43251; 45385; 88305; 88313; 88342; J7120; J2405

== ENCOUNTER → 2023-03-31 | Outpatient (CLI) | payer MEDICARE, OTHER, SELFPAY | END | disposition home or self-care (01) | LOC: SL 12:29 | PROVIDERS: PCP Internal Medicine; Visit Provider Nurse Practitioner Acute Care | DX: G47.33 Obstructive sleep apnea (adult) (pediatric) (principal) ==

== ENCOUNTER → 2023-05-13 | Outpatient (CLI) | payer MEDICARE, OTHER, SELFPAY ==
--- NOTE | 2023-05-13 14:35 | RAD_ITS ---
STUDY: X-RAY - PELVIS REASON FOR EXAM: Male, 77 years old. PAIN TECHNIQUE: One view of the pelvis was obtained. COMPARISON: None. FINDINGS: There is a non-specific bowel gas pattern. Is visualized calcification of the bilateral pelvic vessels. There is visualized degenerative change within the lower lumbar spine. Normal bilateral iliac wings, sacroiliac joints and visualized sacrum. Normal visualized bilateral superior and inferior pubic rami. Normal pubic symphysis. Normal ischial tuberosities. Normal visualized right femoral head. Normal right acetabulum. There is mild articular joint space narrowing of the right hip. Normal visualized left femoral head. Normal left acetabulum. There is mild articular joint space narrowing of the left hip. RAD/Pelvis 1 or 2 Views IMPRESSION: Degenerative change. No visualized acute fracture. Electronically Signed: Audrey Chua MD at 22:19 EST ,
[2023-05-13 17:34] LABS: Absolute Lymphocyte Count 1.12 X10^3/uL (0.83-4.51); Absolute Neutrophil Count 4.7 X10^3/uL (2.0-7.7); Basophil# 0.03 X10^3/uL; Basophil% 0.5 % (0-1); Eosinophil# 0.01 X10^3/uL; Eosinophils% 0.2 % (0-5); Hematocrit 44.4 % (40-54); Hemoglobin 14.6 g/dL (13.0-16.5); Lymphocyte # 1.12 X10^3/ul (0.83-4.51); Lymphocyte % 18.2 % (19-41); Mean Corp Hgb Conc 32.9 g/dL (32-36); Mean Corpuscular Hgb 29.9 pg (27.0-32.0); Mean Corpuscular Volume 90.8 fL (80-94); Mean Platelet Vol. 10.2 fl (6.2-12.0); Monocyte# 0.32 X10^3/uL; Monocyte% 5.2 % (0-10); NRBC Flagged by Analyzer 0 % (0-5); Neutrophil # 4.66 X10^3/uL (2.7-7.7); Neutrophil % 75.4 % (47-70); Platelet Count 191 K/mm3 (150-450); RBC Distribution Width CV 13.7 % (11.6-14.6); RBC Distribution Width SD 44.9 fl (35.1-43.9); Red Blood Count 4.89 M/mm3 (4.6-6.2); White Blood Count 6.2 K/mm3 (4.4-11.0)
[2023-05-13 17:53] LABS: ALB/GLOB Ratio 1.1 RATIO (0.9-2.4); AST(SGOT) 19 U/L (15-37); Alanine Aminotransfer ALT/SGPT 15 U/L (16-61); Alkaline Phosphatase 87 U/L (45-117); Anion Gap 6 (5-15); BUN 27 mg/dL (7-18); BUN/Creat Ratio 21.4 RATIO (10-20); Calcium,Total 9.2 mg/dL (8.5-10.1); Chloride 108 mmol/L (98-107); Creatinine, Serum 1.26 mg/dL (0.70-1.30); EST Glomerular Filtration Rate 59 mL/min (>60); Est Glom Filt Rate - Afr Amer 72 mL/min (>60); Globulin 3.5 g/dL (2.2-4.2); Glucose 129 mg/dL (74-106); Potassium 4.4 mmol/L (3.5-5.1); Protein, Total 7.5 g/dL (6.4-8.2); Rheumatoid Factor < 10.0 IU/mL (<15); Sodium Level 142 mmol/L (136-145)
[2023-05-13 18:32] LABS: Hepatitis C Antibody Non-Reactive (Nonreactive)
[2023-05-16 12:08] LABS: ANTINUCLEAR ANTIBODIES DIRECT Negative (Negative)
[2023-05-16 14:09] LABS: CCP IgG Antibodies 3 units (0-19); Hepatitis Be Ab Negative (Negative); Hepatitis Be Ag Negative (Negative)
== END | disposition home or self-care (01) ==
LOC: MTLAB 14:33
PROVIDERS: PCP Internal Medicine; Referring Provider Internal Medicine Rheumatology; Visit Provider Internal Medicine Rheumatology
DX: M06.4 Inflammatory polyarthropathy (principal); Z79.899 Other long term (current) drug therapy; M50.30 Other cervical disc degeneration, unspecified cervical region; M17.0 Bilateral primary osteoarthritis of knee
CPT/HCPCS: 36415; 72170; 80053; 85025; 86038; 86140; 86200; 86431; 86707; 86803; 87350

== ENCOUNTER 2023-05-19 14:44 | Outpatient (CLI) | payer MEDICARE, OTHER, SELFPAY ==
--- NOTE | 2023-05-19 13:30 | FLU_PTH ---
PATIENT: YOAV DOUGHERTY LOC: [facility] U#:[id number] AGE/SX: 77/M ROOM: RE05/19/[address]: Dr. James Mercer MD : 1945 BED: DIS: 05/19/2023 SPEC #: [id number] RECD: 05/20/23 09:33 STATUS: MAKEDA ISELA #: [id number] GENE: 05/19/23 13:[address]: James Mercer DEPT: CYTOLOGY RECD BY: Sole Pacheco ENTERED: 05/20/23 09:35 SP TYPE: Fluid OTHR DR: Dr. Amanda Vergara MD Tissues: A - Thyroid gland, NOS B - Thyroid gland, NOS C - Thyroid gland, NOS D - Thyroid gland, NOS E - Thyroid gland, NOS F - Thyroid gland, NOS Procedures: Special Stain Group II Surgery Specimen Level IV Cytospin Fluid Cytology Other HEADER OPERATION: Fine needle aspiration of thyroid nodule x3 PRE-OP DIAGNOSIS: Thyroid nodules TISSUE SUBMITTED: A - Left thyroid nodule fluid, B - Left thyroid nodule x4 slides, C - Right mid polar thyroid nodule fluid, D - Right mid polar thyroid nodule x4 slides, E - Right inferior thyroid nodule fluid, F - Right inferior thyroid nodule x4 slides DIAGNOSIS CYTOLOGY A. Left thyroid nodule fluid, fine needle aspiration (cytospin and cell block): Consistent with benign follicular nodule with cystic changes (Doran Category II). Adequate for evaluation. See comment. B. Left thyroid nodule, fine needle aspiration (smears): Consistent with benign follicular nodule with cystic changes (Doran Category II). Adequate for evaluation. See comment. C. Right mid polar thyroid nodule fluid, fine needle aspiration (cytospin and cell block): Negative for malignant cells. See comment. D. Right mid polar thyroid nodule, fine needle aspiration (smears): Negative for malignant cells. See comment. E. Right inferior thyroid nodule fluid, fine needle aspiration (cytospin and cell block): Consistent with benign follicular/colloid nodule (Doran Category II). Adequate for evaluation. See comment. F. Right inferior thyroid nodule, fine needle aspiration (smears): Consistent with benign follicular/colloid nodule (Doran Category II). Adequate for evaluation. See comment. SJ:rg 05/24/2023 COMMENT C & D. Both specimens consist of benign follicular cells and rare macrophages. The specimen is adequate for evaluation by combining the number of follicular cells present in both specimens C & D. The findings are consistent with benign follicular/colloid nodule (Doran Category II). Correlation with clinical, radiologic findings and appropriate follow up are necessary. The Doran System for thyroid diagnostic categorization was used in the evaluation of this case. CYTOLOGY STUDY Slides are reviewed. CYTOLOGY GROSS A - Received is 35 ml of red cloudy fluid labeled with the patient's name and and designated per the requisition as left thyroid nodule. Submitted for cytology preparation including cell block. B - Received are four smears labeled with the patient's name and designated per the requisition as left thyroid nodule. Submitted for staining. C - Received is 40 ml of red cloudy fluid labeled with the patient's name and and designated per the requisition as right mid polar thyroid nodule. Submitted for cytology preparation including cell block. D - Received are four smears labeled with the patient's name and designated per the requisition as right mid polar thyroid nodule. Submitted for staining. E - Received is 40 ml of red cloudy fluid labeled with the patient's name and and designated per the requisition as right inferior thyroid nodule. Submitted for cytology preparation including cell block. F - Received are four smears labeled with the patient's name and designated per the requisition as right inferior thyroid nodule. Submitted for staining. / jayme 05/20/2023 TC:5 CPT: 08940 x6, 16898 x3
== END 2023-05-19 23:59 | disposition home or self-care (01) ==
LOC: LABSPEC 14:47
PROVIDERS: PCP Internal Medicine; Referring Provider Internal Medicine; Visit Provider Surgery
DX: D34 Benign neoplasm of thyroid gland (principal)
CPT/HCPCS: 88108; 88161; 88305; 88313

== ENCOUNTER → 2023-08-02 | Outpatient (CLI) | payer MEDICARE, OTHER, SELFPAY ==
[2023-08-02 10:23] LABS: Absolute Lymphocyte Count 1.58 X10^3/uL (0.83-4.51); Absolute Neutrophil Count 2.9 X10^3/uL (2.0-7.7); Basophil# 0.03 X10^3/uL; Basophil% 0.6 % (0-1); Eosinophil# 0.12 X10^3/uL; Eosinophils% 2.3 % (0-5); Lymphocyte # 1.58 X10^3/ul (0.83-4.51); Lymphocyte % 30.4 % (19-41); Mean Corp Hgb Conc 32.6 g/dL (32-36); Mean Corpuscular Volume 89.2 fL (80-94); Mean Platelet Vol. 11.1 fl (6.2-12.0); Monocyte# 0.51 X10^3/uL; Monocyte% 9.8 % (0-10); NRBC Flagged by Analyzer 0 % (0-5); Neutrophil # 2.94 X10^3/uL (2.7-7.7); Neutrophil % 56.5 % (47-70); Platelet Count 171 K/mm3 (150-450); RBC Distribution Width CV 14.1 % (11.6-14.6); RBC Distribution Width SD 45.4 fl (35.1-43.9); Red Blood Count 4.82 M/mm3 (4.6-6.2); White Blood Count 5.2 K/mm3 (4.4-11.0)
[2023-08-02 10:52] LABS: ALB/GLOB Ratio 1.2 RATIO (0.9-2.4); AST(SGOT) 19 U/L (15-37); Alanine Aminotransfer ALT/SGPT 14 U/L (16-61); Albumin, Serum 3.7 g/dL (3.2-5.0); Alkaline Phosphatase 85 U/L (45-117); Anion Gap 4 (5-15); BUN 29 mg/dL (7-18); BUN/Creat Ratio 20.3 RATIO (10-20); Calcium,Total 9.4 mg/dL (8.5-10.1); Chloride 112 mmol/L (98-107); Cholesterol 146 mg/dL (200); Creatinine, Serum 1.43 mg/dL (0.70-1.30); EST Glomerular Filtration Rate 51 mL/min (>60); Est Glom Filt Rate - Afr Amer 62 mL/min (>60); Globulin 3.1 g/dL (2.2-4.2); Glucose 118 mg/dL (74-106); High Density Lipoprotein 49 mg/dL; Potassium 3.8 mmol/L (3.5-5.1); Protein, Total 6.8 g/dL (6.4-8.2); Sodium Level 141 mmol/L (136-145); Triglycerides 125 mg/dL; Very Low Density Lipoprotein 25 mg/dL (5-40)
== END | disposition home or self-care (01) ==
LOC: MTLAB 09:09
PROVIDERS: PCP Internal Medicine; Referring Provider Internal Medicine; Visit Provider Internal Medicine
DX: M06.4 Inflammatory polyarthropathy (principal); Z79.899 Other long term (current) drug therapy; M50.30 Other cervical disc degeneration, unspecified cervical region; M17.0 Bilateral primary osteoarthritis of knee; M47.897 Other spondylosis, lumbosacral region; E78.5 Hyperlipidemia, unspecified; N18.9 Chronic kidney disease, unspecified; I49.3 Ventricular premature depolarization; K21.9 Gastro-esophageal reflux disease without esophagitis; Z98.890 Other specified postprocedural states; Z85.820 Personal history of malignant melanoma of skin; I12.9 Hypertensive chronic kidney disease with stage 1 through stage 4 chronic kidney disease, or unspecified chronic kidney disease
CPT/HCPCS: 36415; 80053; 80061; 85025

== ENCOUNTER → 2023-09-06 | Outpatient (CLI) | payer MEDICARE, OTHER, SELFPAY ==
[2023-09-06 10:23] LABS: Absolute Lymphocyte Count 1.67 X10^3/uL (0.83-4.51); Absolute Neutrophil Count 3.8 X10^3/uL (2.0-7.7); Basophil# 0.06 X10^3/uL; Eosinophils% 1.6 % (0-5); Hematocrit 42.1 % (40-54); Hemoglobin 13.9 g/dL (13.0-16.5); Lymphocyte # 1.67 X10^3/ul (0.83-4.51); Lymphocyte % 27.1 % (19-41); Mean Corpuscular Hgb 30.2 pg (27.0-32.0); Mean Corpuscular Volume 91.5 fL (80-94); Mean Platelet Vol. 11.4 fl (6.2-12.0); Monocyte# 0.53 X10^3/uL; Monocyte% 8.6 % (0-10); NRBC Flagged by Analyzer 0 % (0-5); Neutrophil # 3.76 X10^3/uL (2.7-7.7); Neutrophil % 61.1 % (47-70); Platelet Count 160 K/mm3 (150-450); RBC Distribution Width CV 15.3 % (11.6-14.6); RBC Distribution Width SD 50.4 fl (35.1-43.9); White Blood Count 6.2 K/mm3 (4.4-11.0)
[2023-09-06 14:40] LABS: ALB/GLOB Ratio 1.2 RATIO (0.9-2.4); AST(SGOT) 49 U/L (15-37); Alanine Aminotransfer ALT/SGPT 21 U/L (16-61); Albumin, Serum 3.8 g/dL (3.2-5.0); Alkaline Phosphatase 73 U/L (45-117); Anion Gap 5 (5-15); BUN 42 mg/dL (7-18); Calcium,Total 9.7 mg/dL (8.5-10.1); Chloride 107 mmol/L (98-107); Creatinine, Serum 1.83 mg/dL (0.70-1.30); EST Glomerular Filtration Rate 38 mL/min (>60); Est Glom Filt Rate - Afr Amer 47 mL/min (>60); Globulin 3.1 g/dL (2.2-4.2); Glucose 116 mg/dL (74-106); Protein, Total 6.9 g/dL (6.4-8.2); Sodium Level 139 mmol/L (136-145)
== END | disposition home or self-care (01) ==
LOC: LAB 09:56
PROVIDERS: PCP Internal Medicine; Referring Provider Internal Medicine Rheumatology; Visit Provider Internal Medicine Rheumatology
DX: M06.4 Inflammatory polyarthropathy (principal); Z79.899 Other long term (current) drug therapy; M50.30 Other cervical disc degeneration, unspecified cervical region; M17.0 Bilateral primary osteoarthritis of knee; M47.897 Other spondylosis, lumbosacral region
CPT/HCPCS: 36415; 80053; 85025

== ENCOUNTER → 2023-09-15 | Outpatient (CLI) | payer MEDICARE, OTHER, SELFPAY ==
[2023-09-15 15:00] LABS: Absolute Lymphocyte Count 0.69 X10^3/uL (0.83-4.51); Absolute Neutrophil Count 4.5 X10^3/uL (2.0-7.7); Basophil# 0.02 X10^3/uL; Basophil% 0.4 % (0-1); Eosinophil# 0.02 X10^3/uL; Eosinophils% 0.4 % (0-5); Hematocrit 40.6 % (40-54); Hemoglobin 13.6 g/dL (13.0-16.5); Lymphocyte # 0.69 X10^3/ul (0.83-4.51); Lymphocyte % 12.4 % (19-41); Mean Corp Hgb Conc 33.5 g/dL (32-36); Mean Corpuscular Hgb 30.5 pg (27.0-32.0); Mean Platelet Vol. 10.1 fl (6.2-12.0); Monocyte# 0.28 X10^3/uL; NRBC Flagged by Analyzer 0 % (0-5); Neutrophil # 4.51 X10^3/uL (2.7-7.7); Neutrophil % 81.3 % (47-70); Platelet Count 134 K/mm3 (150-450); RBC Distribution Width CV 14.9 % (11.6-14.6); RBC Distribution Width SD 49.2 fl (35.1-43.9); Red Blood Count 4.46 M/mm3 (4.6-6.2); White Blood Count 5.6 K/mm3 (4.4-11.0)
[2023-09-15 15:59] LABS: Anion Gap 4 (5-15); BUN 30 mg/dL (7-18); BUN/Creat Ratio 20.5 RATIO (10-20); Calcium,Total 9.6 mg/dL (8.5-10.1); Chloride 106 mmol/L (98-107); Creatinine, Serum 1.46 mg/dL (0.70-1.30); EST Glomerular Filtration Rate 50 mL/min (>60); Est Glom Filt Rate - Afr Amer 60 mL/min (>60); Glucose 159 mg/dL (74-106); Potassium 4.6 mmol/L (3.5-5.1); Sodium Level 137 mmol/L (136-145); Thyroid Stim Hormone (TSH) 0.51 uIU/mL (0.358-3.74)
[2023-09-15 16:38] LABS: BNP,B-Type NATRIURETIC PEPTIDE 59.9 pg/mL (0-100)
== END | disposition home or self-care (01) ==
LOC: LAB 13:24
PROVIDERS: PCP Internal Medicine; Visit Provider Nurse Practitioner Gerontology
DX: R06.09 Other forms of dyspnea (principal); I48.91 Unspecified atrial fibrillation; R53.83 Other fatigue
CPT/HCPCS: 36415; 80048; 83735; 83880; 84443; 85025

== ENCOUNTER → 2023-09-21 | Outpatient (CLI) | payer MEDICARE, OTHER, SELFPAY ==
--- NOTE | 2023-09-21 09:54 | ECHOCS_ITS ---
Reason For Study: OSBORN Procedure This was a 2D Doppler, Color Flow transthoracic echocardiogram. Contrast injection was performed. Exam performed in department. Left Ventricle Normal LV size. Mild concentric left ventricular hypertrophy. Left ventricular systolic function is normal. Stage 1 diastolic dysfunction. No regional wall motion abnormalities noted. Right Ventricle Normal RV size. Normal systolic function. Atria The left atrium is mildly enlarged. Normal right atrium. Mitral Valve Normal mitral valve. Mild (1+) eccentric mitral valve insufficiency. Tricuspid Valve Normal tricuspid valve. Mild tricuspid valve insufficiency. Pulmonary artery systolic pressure is 30 mmHg. Aortic Valve Trisinus/trileaflet aortic valve. Pulmonic Valve Normal pulmonic valve. Great Vessels Normal aortic root. Pericardium/Pleural No pericardial effusion. Medication 22 gauge I.V. with prn adaptor inserted into right arm. Diluted definity 2.5ml given slow IV push to enhance endocardial definition. MMode/2D Measurements & Calculations LVIDd: 4.8 cm IVSd: 1.2 cm LA dimension: 4.4 cm LVIDs: 3.1 cm LVPWd: 1.2 cm FS: 35.4 % LAV(MOD-bp): 66.3 ml LA A4 area: 21.8 cm2 RA A4 area: 18.0 cm2 LAV(MOD-bp) Indexed: 30.3 ml/m2 LAV(MOD-sp2): 67.0 ml LAV(MOD-sp4): 59.6 ml TAPSE: 2.2 cm Time Measurements MV dec time: 0.21 sec Doppler Measurements & Calculations MV E max bob: 63.9 cm/sec Lat Peak E' Bob: 11.6 cm/sec Med Peak E' Bob: 8.4 cm/sec MV A max bob: 70.3 cm/sec E/E' lat: 5.5 E/E' med: 7.6 MV E/A: 0.91 MV V2 max: 79.6 cm/sec MV P1/2t max bob: 80.3 cm/sec Ao V2 max: 186.9 cm/sec MV max P.5 mmHg MV P1/2t: 71.3 msec Ao max P.0 mmHg MV V2 mean: 44.8 cm/sec MV dec slope: 330.1 cm/sec2 Ao V2 mean: 121.6 cm/sec MV mean P.97 mmHg MVA(P1/2t): 3.1 cm2 Ao mean P.0 mmHg MV V2 VTI: 24.5 cm Ao V2 VTI: 36.6 cm LV V1 max: 155.0 cm/sec MR max bob: 555.0 cm/sec PA V2 max: 151.2 cm/sec LV V1 max P.6 mmHg MR max P.2 mmHg PA V2 mean: 101.1 cm/sec TR max bob: 250.0 cm/sec TR max P.0 mmHg ECHO/Echo Complete W/ Contrast Interpretation Summary Normal LV size. Left ventricular systolic function is normal. Mild concentric left ventricular hypertrophy. Stage 1 diastolic dysfunction. The left atrium is mildly enlarged. Mild tricuspid valve insufficiency. Contrast injection was performed. Ordering Physician: Ernestina Tucker Referring Physician: Ernestina Tucker Performed By: Jose L Hubbard RCS
== END | disposition home or self-care (01) ==
LOC: CVS 09:53
PROVIDERS: PCP Internal Medicine; Referring Provider Nurse Practitioner Gerontology; Visit Provider Nurse Practitioner Gerontology
DX: R06.09 Other forms of dyspnea (principal)
CPT/HCPCS: 93306; Q9957; A4216; C8929

== ENCOUNTER → 2023-09-27 | Outpatient (CLI) | payer MEDICARE, OTHER, SELFPAY | END | disposition home or self-care (01) | LOC: PSN 10:51 | PROVIDERS: PCP Internal Medicine; Referring Provider Nurse Practitioner Gerontology; Visit Provider Nurse Practitioner Gerontology | DX: I48.91 Unspecified atrial fibrillation (principal); I49.3 Ventricular premature depolarization | CPT/HCPCS: 93225; 93226 ==

== ENCOUNTER → 2023-10-04 | Outpatient (CLI) | payer MEDICARE, OTHER, SELFPAY ==
--- NOTE | 2023-10-04 09:21 | US_ITS ---
STUDY: ABDOMINAL ULTRASOUND - RIGHT UPPER QUADRANT REASON FOR VISIT: Male, 78 years old ELEVATED LIVER ENZYME TECHNIQUE: Ultrasound evaluation of the right upper quadrant was performed with real-time and static barillas-scale imaging. TECHNICAL QUALITY: Adequate. COMPARISON: None. FINDINGS: Liver: The liver measures 15.1 cm. There is increased echogenicity consistent with fatty infiltration. The bile ducts are within normal limits. There is hepatic color flow. The direction of portal flow is hepatopetal. There is no demonstrated mass lesion. Gallbladder: Normal distended gallbladder. The gallbladder wall measures 2.0 mm. There is a negative sonographic Dixon''s sign. There is no pericholecystic fluid. There are no gallstones. Common Bile Duct (C.B.D.): The common bile duct measures 4.0 mm. Pancreas: Normal size of the head, body and tail of the pancreas. There is increased echogenicity of the pancreas. There is no demonstrated pancreatic mass or cyst. Right Kidney: Normal size of the right kidney. The right kidney measures 10.4 cm x 5.6 cm x 5.8 cm. Normal renal cortex. The right cortex measures 1.5 cm. There is no demonstrated renal mass or cyst. There is no right hydronephrosis. US/Abdomen Limited IMPRESSION: Fatty infiltration of the liver. Electronically Signed: Irvin Ellison MD at 10:28 EDT ,
== END | disposition home or self-care (01) ==
LOC: US 09:17
PROVIDERS: PCP Internal Medicine; Referring Provider Internal Medicine Rheumatology; Visit Provider Internal Medicine Rheumatology
DX: M06.4 Inflammatory polyarthropathy (principal); Z79.899 Other long term (current) drug therapy; M50.30 Other cervical disc degeneration, unspecified cervical region; M17.0 Bilateral primary osteoarthritis of knee
CPT/HCPCS: 76705

== ENCOUNTER → 2023-10-05 | Outpatient (CLI) | payer MEDICARE, OTHER, SELFPAY ==
[2023-10-05 12:24] LABS: ALB/GLOB Ratio 1.2 RATIO (0.9-2.4); AST(SGOT) 23 U/L (15-37); Alanine Aminotransfer ALT/SGPT 22 U/L (16-61); Albumin, Serum 3.7 g/dL (3.2-5.0); Alkaline Phosphatase 63 U/L (45-117); Anion Gap 5 (5-15); BUN 40 mg/dL (7-18); Calcium,Total 9.5 mg/dL (8.5-10.1); Chloride 106 mmol/L (98-107); Creatinine, Serum 1.67 mg/dL (0.70-1.30); EST Glomerular Filtration Rate 43 mL/min (>60); Est Glom Filt Rate - Afr Amer 52 mL/min (>60); Glucose 147 mg/dL (74-106); Potassium 4.2 mmol/L (3.5-5.1); Protein, Total 6.7 g/dL (6.4-8.2); Sodium Level 139 mmol/L (136-145)
[2023-10-05 12:29] LABS: Absolute Lymphocyte Count 1.65 X10^3/uL (0.83-4.51); Absolute Neutrophil Count 3.5 X10^3/uL (2.0-7.7); Basophil# 0.03 X10^3/uL; Basophil% 0.5 % (0-1); Eosinophil# 0.05 X10^3/uL; Eosinophils% 0.9 % (0-5); Hematocrit 41.7 % (40-54); Hemoglobin 13.8 g/dL (13.0-16.5); Lymphocyte # 1.65 X10^3/ul (0.83-4.51); Lymphocyte % 28.4 % (19-41); Mean Corp Hgb Conc 33.1 g/dL (32-36); Mean Corpuscular Hgb 30.7 pg (27.0-32.0); Mean Corpuscular Volume 92.9 fL (80-94); Mean Platelet Vol. 10.9 fl (6.2-12.0); Monocyte# 0.51 X10^3/uL; Monocyte% 8.8 % (0-10); NRBC Flagged by Analyzer 0 % (0-5); Neutrophil # 3.53 X10^3/uL (2.7-7.7); Neutrophil % 60.9 % (47-70); Platelet Count 146 K/mm3 (150-450); RBC Distribution Width CV 14.1 % (11.6-14.6); RBC Distribution Width SD 47.8 fl (35.1-43.9); Red Blood Count 4.49 M/mm3 (4.6-6.2); White Blood Count 5.8 K/mm3 (4.4-11.0)
== END | disposition home or self-care (01) ==
PROVIDERS: PCP Internal Medicine; Referring Provider Internal Medicine Rheumatology; Visit Provider Internal Medicine Rheumatology
DX: M06.4 Inflammatory polyarthropathy (principal); Z79.899 Other long term (current) drug therapy; M50.30 Other cervical disc degeneration, unspecified cervical region; M17.0 Bilateral primary osteoarthritis of knee
CPT/HCPCS: 36415; 80053; 85025

== ENCOUNTER → 2023-12-09 | Outpatient (CLI) | payer MEDICARE, OTHER, SELFPAY ==
[2023-12-09 15:10] LABS: Absolute Lymphocyte Count 1.27 X10^3/uL (0.83-4.51); Absolute Neutrophil Count 4.3 X10^3/uL (2.0-7.7); Basophil# 0.03 X10^3/uL; Basophil% 0.5 % (0-1); Eosinophil# 0.01 X10^3/uL; Eosinophils% 0.2 % (0-5); Hematocrit 38.2 % (40-54); Hemoglobin 12.6 g/dL (13.0-16.5); Lymphocyte # 1.27 X10^3/ul (0.83-4.51); Lymphocyte % 20.4 % (19-41); Mean Corpuscular Hgb 30.6 pg (27.0-32.0); Mean Corpuscular Volume 92.7 fL (80-94); Mean Platelet Vol. 10.8 fl (6.2-12.0); Monocyte# 0.63 X10^3/uL; Monocyte% 10.1 % (0-10); NRBC Flagged by Analyzer 0 % (0-5); Neutrophil # 4.25 X10^3/uL (2.7-7.7); Neutrophil % 68.2 % (47-70); Platelet Count 150 K/mm3 (150-450); RBC Distribution Width CV 14.5 % (11.6-14.6); RBC Distribution Width SD 48.9 fl (35.1-43.9); Red Blood Count 4.12 M/mm3 (4.6-6.2); White Blood Count 6.2 K/mm3 (4.4-11.0)
[2023-12-09 15:25] LABS: ALB/GLOB Ratio 1.3 RATIO (0.9-2.4); AST(SGOT) 21 U/L (15-37); Alanine Aminotransfer ALT/SGPT 15 U/L (16-61); Albumin, Serum 3.5 g/dL (3.2-5.0); Alkaline Phosphatase 62 U/L (45-117); Anion Gap 6 (5-15); BUN 33 mg/dL (7-18); BUN/Creat Ratio 16.3 RATIO (10-20); Calcium,Total 9.8 mg/dL (8.5-10.1); Chloride 110 mmol/L (98-107); Creatinine, Serum 2.02 mg/dL (0.70-1.30); EST Glomerular Filtration Rate 34 mL/min (>60); Est Glom Filt Rate - Afr Amer 41 mL/min (>60); Globulin 2.7 g/dL (2.2-4.2); Glucose 158 mg/dL (74-106); Potassium 4.3 mmol/L (3.5-5.1); Protein, Total 6.2 g/dL (6.4-8.2); Sodium Level 140 mmol/L (136-145)
== END | disposition home or self-care (01) ==
LOC: MTLAB 13:06
PROVIDERS: PCP Internal Medicine; Referring Provider Internal Medicine Rheumatology; Visit Provider Internal Medicine Rheumatology
DX: M06.4 Inflammatory polyarthropathy (principal); Z79.899 Other long term (current) drug therapy; M50.30 Other cervical disc degeneration, unspecified cervical region; M17.0 Bilateral primary osteoarthritis of knee
CPT/HCPCS: 36415; 80053; 85025

== ENCOUNTER → 2023-12-22 | Outpatient (CLI) | payer MEDICARE, OTHER, SELFPAY ==
--- NOTE | 2023-12-22 11:50 | RAD_ITS ---
STUDY: X-RAY CHEST REASON FOR EXAM: Male, 78 years old. OSBORN TECHNIQUE: PA and lateral views of the chest. COMPARISON: 06/14/2022 FINDINGS: The lungs are clear and expanded. There is no demonstrated pleural abnormality. Normal size heart. Normal mediastinum and shyann. Normal visualized pulmonary arteries. Normal visualized aortic arch and descending thoracic aorta. Normal visualized thoracic spine. Normal visualized ribs, clavicles, and shoulders. There is no demonstrated abnormality of the visualized soft tissue structures of the upper abdomen. RAD/Chest PA and Lateral IMPRESSION: Normal x-ray examination of the chest. Electronically Signed: Tito Lee MD at 13:56 EDT ,
== END | disposition home or self-care (01) ==
PROVIDERS: PCP Internal Medicine; Referring Provider Nurse Practitioner Gerontology; Visit Provider Nurse Practitioner Gerontology
DX: R06.09 Other forms of dyspnea (principal)
CPT/HCPCS: 71046

== ENCOUNTER → 2024-01-02 | Outpatient (CLI) | payer MEDICARE, OTHER, SELFPAY ==
--- NOTE | 2024-01-02 08:52 | CDU_ITS ---
Reason For Study: Dizziness Rt. Velocities/BP Lt. Velocities/BP Prox CCA 115.7/14.6 cm/sec. Prox CCA 143/20.6 cm/sec. Mid CCA 118.2/17.6 cm/sec. Mid CCA 110.1/17 cm/sec. Dist CCA 82.6/9 cm/sec. Dist CCA 93.7/17 cm/sec. Prox ICA 88.3/14.6 cm/sec. Prox ICA 93.7/18.8 cm/sec. Mid ICA 81.7/16.8 cm/sec. Mid ICA 93.7/24.9 cm/sec. Dist ICA 57.5/13.5 cm/sec. Dist ICA 93/21.2 cm/sec. Rt. ICA/CCA = 0.75. Lt. ICA/CCA = 0.85. Prox ECA 110.1/6 cm/sec. Prox ECA 115.8/11.4 cm/sec. Rt. Vert. 48.7/11.3 cm/sec. Lt. Vert. 56/10.7 cm/sec. Right Extracranial There is heterogeneous, smooth atherosclerotic plaque noted in the right common carotid artery. There is heterogeneous, irregular atherosclerotic plaque noted in the right internal carotid artery. There is heterogeneous, irregular atherosclerotic plaque noted in the right external carotid artery. Antegrade flow is noted in the right vertebral artery. Left Extracranial There is homogeneous, smooth atherosclerotic plaque noted in the left common carotid artery. There is heterogeneous, irregular atherosclerotic plaque noted in the left internal carotid artery. There is heterogeneous, irregular atherosclerotic plaque noted in the left external carotid artery. Antegrade flow is noted in the left vertebral artery. Procedure This is a Carotid Duplex examination using B-mode, color flow and specral Doppler. Carotid Duplex [id number]. Exam performed in department. VL/Carotid Duplex Ultrasound Interpretation Summary Mild (<50%) stenosis right extracranial internal carotid. Mild (<50%) stenosis left extracranial internal carotid. Patent and antegrade vertebrals bilaterally. Ordering Physician: Ernestina Tucker Referring Physician: Amanda Vergara Performed By: Clemencia Chu RVT
== END | disposition home or self-care (01) ==
LOC: CVS 08:52
PROVIDERS: PCP Internal Medicine; Referring Provider Nurse Practitioner Gerontology; Visit Provider Nurse Practitioner Gerontology
DX: R06.09 Other forms of dyspnea (principal); R42 Dizziness and giddiness
CPT/HCPCS: 93880; 94060; 94726; 94729

== ENCOUNTER 2024-01-12 15:25 | Emergency (ER) | payer MEDICARE, OTHER, SELFPAY ==
[2024-01-12] VITALS (10 sets, daily range): BP systolic 128–162; BP diastolic 68–85; PULSE 65–109; RESP 10–18; TEMP 35.9–36.9; O2SAT 95–98; BMI 30.7
--- NOTE | 2024-01-12 15:38 | EKG12_ITS ---
Test Reason : PALP Blood Pressure : / mmHG Vent. Rate : 111 BPM Atrial Rate : 000 BPM P-R Int : 000 ms QRS Dur : 114 ms QT Int : 380 ms P-R-T Axes : 000 -68 055 degrees QTc Int : 516 ms SINUS RHYTHM WITH FIRST DEGREE AV BLOCK Left axis deviation Incomplete right bundle branch block Inferior infarct (cited on or before 10-JUN-2022) Abnormal ECG Confirmed by ANITHA OLIVERA, KATHY ([id number]), copy editor YOLANDA GARBER ([id number]) on 01/20/2024 7:25:37 AM Referred By: ARVIND/ERIN Confirmed By:JHONY WELSH MD
--- NOTE | 2024-01-12 15:38 | RAD_ITS ---
STUDY: X-RAY CHEST REASON FOR EXAM: Male, 78 years old. chest pain TECHNIQUE: Single AP portable view of the chest. COMPARISON: 12/22/2023. FINDINGS: The lungs are clear and expanded. There is no demonstrated pleural abnormality. Normal size heart. Implanted lunchroom monitor seen in typical location. Normal mediastinum and shyann. Normal visualized pulmonary arteries. Normal visualized aortic arch and descending thoracic aorta. Normal visualized thoracic spine. Normal visualized ribs, clavicles, and shoulders. There is no demonstrated abnormality of the visualized soft tissue structures of the upper abdomen. RAD/Chest 1 View (Portable) IMPRESSION: No definite acute or significant abnormality seen. Electronically Signed: Michael Gupta MD at 16:26 EDT ,
--- NOTE | 2024-01-12 15:46 | ED.VIS.CHEST ---
HPI History of Present Illness Chief Complaint: Palpitations Informant: patient and spouse/S.O. Onset/Context/Timing Onset: Today Activity at onset: sudden Current Severity: Gone Maximum Severity: Mild Worsened By: Nothing Relieved By: Nothing Associated Symptoms: Negative for Nausea, Vomiting or Diaphoresis Narrative Narrative: 78-year-old male history of CKD, CAD on Eliquis. 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 He was working outside with a [employer]. He came inside felt lightheaded and had a near syncopal episode but did not pass out. And was called by the cardiac monitoring company time to come to the hospital because I saw an abnormal rhythm. He does not know exactly what they saw. Prior Similar Symptoms: Yes Recent Illness/Hospitalization: No CVD Risk Factors: Negative for Hypertension or Diabetes PE Risk Factors: Negative for Recent Travel/Surgery, Recent Immobilization, Prior DVT or PE, Cancer or OCP + Smoking + >/=35 TAD Risk Factors: Negative for Marfan's Syndrome [facility] Medical History Wears glasses Cancer Alcohol use History of steroid therapy High cholesterol Excessive bleeding Back pain Normal Holter exam Syncope Diverticulosis Non-smoker Gastric reflux CPAP (continuous positive airway pressure) dependence History of pain when walking History of edema History of echocardiogram Cardiology follow-up encounter History of irregular heartbeat History of atrial fibrillation Vision problems Vascular disease Thyroid disease PMR (polymyalgia rheumatica) Ventricular tachycardia Conduction disorder of the heart Syncope History of left heart catheterization (LHC) (~06/15/22) Pure hypercholesterolemia Atherosclerotic heart disease of [place] coronary artery without angina pectoris Skin lesion Goiter Right hip pain Dizziness History of melanoma Lumbar degenerative disc disease Cervical spine degeneration Hypercholesterolemia Chronic renal disease, stage III Prostate cancer CAD (coronary artery disease) PVC (premature ventricular contraction) Essential (primary) hypertension Home Medications ?Medication ?Instructions ?Recorded ?Last Taken ?Type atorvastatin 40 mg tablet 40 mg PO QHS CHOLESTEROL #90 tabs 01/18/23 Unknown Rx omeprazole 20 mg capsule,delayed 20 mg PO DAILY #90 caps 01/18/23 Unknown Rx release doxazosin 4 mg tablet (Cardura) 4 mg PO DAILY #90 tabs 07/01/23 Unknown Rx epinephrine 0.15 mg/0.15 mL 0.15 ml IM ONCE PRN 09/15/23 Unknown Rx auto-injector (for 33 to 66 lb hypersensitivity reaction #2 ea patients) apixaban 5 mg tablet (Eliquis) 5 mg PO BID #180 tabs 09/27/23 Unknown Rx amlodipine 5 mg tablet 5 mg PO DAILY BP #90 tabs 10/06/23 Unknown Rx prednisone 5 mg tablet 5 mg PO DAILY 12/22/23 Unknown History lisinopril 20 mg tablet 20 mg PO DAILY #90 tabs 01/04/24 Unknown Rx dexamethasone 0.5 mg/5 mL oral 0.5 mg PO BID 01/12/24 Unknown History solution erythromycin 5 mg/gram (0.5 %) eye 1 applic ophthalmic (eye) QHS 01/12/24 Unknown History ointment fluorometholone 0.1 % eye 1 drp ophthalmic (eye) BID 01/12/24 Unknown History drops,suspension Allergy/AdvReac Type Severity Reaction Status Date / Time bee venom protein (honey bee) Allergy Severe Anaphylaxis Verified 12/23/23 16:28 Anesthetics - Amide Type - Allergy Unknown Other Verified 12/23/23 16:28 Select A hydroxychloroquine (From Allergy Rash Verified 12/23/23 16:28 Plaquenil) Family History Mother Cancer Brain Brother CAD (coronary artery disease) stents Hypertension Sister Arthritis Thyroid disorder Rheumatoid arthritis Father , 70 Hypertension AAA (abdominal aortic aneurysm) CRF (chronic renal failure) Alcoholism Heart disease CVA (cerebral vascular accident) Grandmother Rheumatoid arthritis Surgical History Hx of laminectomy History of colonoscopy H/O inguinal hernia repair Hx of toe surgery History of tonsillectomy History of total right knee replacement (TKR) (~07/2022) History of skin cancer (~02/2007) History of prostatectomy (~06/2006) History of lumbar discectomy (~1987) Social History household members: spouse current occupational status: retired 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 Constitutional Constitutional ED: Denies fever(s) Eyes Eyes: Reports none ENT ENT ED: Denies ear pain Cardiovascular Cardiovascular: Denies chest pain Respiratory/Chest Respiratory/Chest: Denies cough Gastrointestinal Gastrointestinal: Reports abdominal pain Genitourinary Genitourinary ED: Denies dysuria Musculoskeletal Musculoskeletal: Denies arthralgias Integumentary Denies abscess Psychiatric Psychiatric: Denies anxiety Endocrine Endocrinology: Denies cold intolerance Hematologic/Lymphatic Hematologic/Lymphatic: Denies easy bleeding or easy bruising Allergic/Immunologic Allergic/Immunologic ED: Denies mouth swelling, tongue swelling or urticaria EXAM Physical Exam Narrative Exam Narrative: Well-appearing 78-year-old male. Vital signs stable afebrile. Pulse ox 90% room air no signs of hypoxia. No distress. H EENT exam unremarkable. Neck nontender. Lungs clear to auscultation bilaterally. Heart regular rhythm rate about 105 no murmur. Chest wall ribs nontender. Abdomen soft nontender. Moving all 4 extremities. Equal symmetrical radial pulses. Calves are nontender without edema or cords. Neurologically is awake and alert no focal motor deficits. Answer questions following commands. Const Vital Signs: 01/12/24 15:27 01/12/24 16:07 01/12/24 16:26 Temperature 96.6 F L Temperature Source Tympanic Pulse Rate 109 H 67 Respiratory Rate 11 L 18 Blood Pressure 144/76 H 160/85 H Blood Pressure Mean 98 110 Pulse Ox 98 95 Oxygen Delivery Method Room Air Room Air Room Air 01/12/24 17:00 01/12/24 18:00 01/12/24 19:00 Temperature Temperature Source Pulse Rate 77 65 67 Respiratory Rate 18 11 L 10 L Blood Pressure 158/77 H 146/73 H 128/68 H Blood Pressure Mean 104 97 88 Pulse Ox 97 97 98 Oxygen Delivery Method Room Air Room Air Room Air 01/12/24 20:00 Temperature Temperature Source Pulse Rate 92 Respiratory Rate 18 Blood Pressure 156/81 H Blood Pressure Mean 106 Pulse Ox 97 Oxygen Delivery Method Room Air Positive well nourished and well developed; Negative for obese, cachectic, contractures or unkempt General Appearance ED: well developed and NAD; Negative for unkempt, cachectic, contractures or pallor Nutritional Appearance: Negative for cachectic or obese HEENT Reports moist mucous membranes; Denies dry mucous membranes normocephalic and atraumatic; Negative for trauma or tenderness Mouth ED: No dry mucous membranes Mouth: No dry mucous membranes Eyes PERRL and EOMs intact bilaterally General Eye ED: Negative for pale conjunctiva, scleral icterus or other Neck no lymphadenopathy, supple and no JVD General: Negative for tenderness Chest Wall inspection of chest normal and palpation of chest normal Resp normal respiratory effort and clear to auscultation bilaterally Effort and Inspection: Negative for respiratory distress Auscultation: Negative for rales, rhonchi, wheezes or diminished lung sounds Cardio regular rate, regular rhythm, S1 normal heart sound, S2 normal heart sound and no murmurs Peripheral Pulses: pulses 2+ throughout GI normal to inspection, nondistended, normoactive bowel sounds, soft to palpation, non-tender, non-distended and no masses Back/Spine no CVA tenderness and no thoracic nor lumbar tenderness General Back: Negative for CVA tenderness Cervical Spine: Negative for cervical spine tenderness Extremity General Extremety ED: Negative for edema, pulses abnormal or tenderness General Extremity: Negative for edema or pulses abnormal Neuro oriented x3 and CN's II-XII intact bilaterally Sensorium / Orientation: awake, alert, oriented to person, oriented to place and oriented to time; Negative for confused, lethargic or stuporous Motor Exam: strength 5/5 throughout Psych mental status grossly normal Appearance: Negative for unkempt Mood & Affect: Negative for depressed, anxious or tearful Skin no rashes or lesions noted and no wounds General Skin Exam: Negative for jaundice or pallor Rashes: No rashes noted Trauma: Negative for abrasion, laceration or puncture MDM MDM MDM Narrative Medical decision making narrative: 78-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 Per the cardiac monitoring company at a heart rate of 240 consistent with V. tach. He has been evaluated through [facility] for this before. I will speak to him about transferring there for a pace maker defibrillator. Currently stable awake and alert. With a heart rate of 100. Repeat exam patient doing well at 4:47 PM. Awaiting transfer acceptance to [facility]. Patient doing well at 8 PM. Awaiting transfer to [facility]. They have accepted him. There should be an ambulance here around 1030 tonight. History & Record Review Discussion w/independent historian: Patient and Family Additional record(s) reviewed:: Prior inpatient record, Prior outpatient record, Prior ED visit and Prior labs Lab Data Attestation: I reviewed the patient's lab results. Lab results narrative: CBC normal white count is 6 H&H of 13 and 40. Platelets 160. Chemistries show gap of 10. BUN 23 creatinine 1.69. Glucose 186. Initial troponin 266. Repeat troponin 278. Labs: Laboratory Results - last 24 hr 01/12/24 01/12/24 15:25 19:13 WBC 6.6 RBC 4.49 L Hgb 13.8 Hct 40.7 MCV 90.6 MCH 30.7 MCHC 33.9 RDW Std Deviation 46.0 H RDW Coeff of Reji 13.7 Plt Count 160 MPV 11.1 Immature Gran % (Auto) 0.500 Neut % (Auto) 72.3 H Lymph % (Auto) 20.2 Delta % (Auto) 6.7 Eos % (Auto) 0.0 Baso % (Auto) 0.3 Absolute Neuts (auto) 4.7 Absolute Lymphs (auto) 1.32 Nucleated RBC % 0 Sodium 139 Potassium 4.3 Chloride 106 Carbon Dioxide 23.0 Anion Gap 10 BUN 23 H Creatinine 1.69 H Estim Creat Clear Calc 44.76 Est GFR (MDRD) Af Amer 51 L Est GFR (MDRD) Non-Af 42 L BUN/Creatinine Ratio 13.6 Glucose 186 H Calcium 9.3 Troponin I High Sens 266 H* 278 H* Radiography Chest X-Ray - ED: 1 View, Read by ED Physician, Heart, Lungs, Mediastinum, Bony Structures, No Acute Disease and Chronic Changes Diagnostic Testing: Clinical Impression(s) from Imaging Studies Chest X-Ray 01/12/24 15:38 IMPRESSION: No definite acute or significant abnormality seen. Electronically Signed: Michael Gupta MD at 16:26 EDT , Chest x-ray, portable, single view interpreted by myself shows no acute abnormality. 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 Normal lung morillo. Rhythm Strip Rhythm Strip: Junctional Rate: 109 Ectopy: None EKG Initial EKG: Attestation: I personally reviewed and interpreted this EKG as follows: Interpretation: No Acute Injury Pattern Comments: Junctional rhythm rate of 109. No acute signs of TX or ischemia. Incomplete right bundle branch block Discharge Plan Triage Chief Complaint: Palpitations ED Provider: Kenneth Gambino Dx/Rx/DC Orders Clinical Impression: Near syncope, Non-sustained ventricular tachycardia, History of chronic kidney disease Prescriptions: No Action prednisone 5 mg tablet 5 mg PO DAILY Patient Comments: take 1 tablet by mouth every morning epinephrine 0.15 mg/0.15 mL auto-injector 0.15 ml IM ONCE PRN (Reason: hypersensitivity reaction) Qty: 2 3RF dexamethasone 0.5 mg/5 mL solution 0.5 mg PO BID fluorometholone 0.1 % drops,suspension 1 drp ophthalmic (eye) BID erythromycin 5 mg/gram (0.5 %) ointment 1 applic ophthalmic (eye) QHS atorvastatin 40 mg tablet 40 mg PO QHS Qty: 90 3RF omeprazole 20 mg capsule,delayed release(DR/EC) 20 mg PO DAILY Qty: 90 3RF doxazosin [Cardura] 4 mg tablet 4 mg PO DAILY Qty: 90 3RF Eliquis 5 mg tablet 5 mg PO BID Qty: 180 4RF amlodipine 5 mg tablet 5 mg PO DAILY Qty: 90 3RF lisinopril 20 mg tablet 20 mg PO DAILY Qty: 90 3RF Primary Care Provider: Amanda Vergara Referrals: Amanda Vergara MD [Primary Care Provider] - Print Language: Tajik Disposition Disposition: Acute Care Hospital
[2024-01-12 15:54] LABS: Absolute Lymphocyte Count 1.32 X10^3/uL (0.83-4.51); Absolute Neutrophil Count 4.7 X10^3/uL (2.0-7.7); Basophil# 0.02 X10^3/uL; Basophil% 0.3 % (0-1); Hematocrit 40.7 % (40-54); Hemoglobin 13.8 g/dL (13.0-16.5); Lymphocyte # 1.32 X10^3/ul (0.83-4.51); Lymphocyte % 20.2 % (19-41); Mean Corp Hgb Conc 33.9 g/dL (32-36); Mean Corpuscular Hgb 30.7 pg (27.0-32.0); Mean Corpuscular Volume 90.6 fL (80-94); Mean Platelet Vol. 11.1 fl (6.2-12.0); Monocyte# 0.44 X10^3/uL; Monocyte% 6.7 % (0-10); NRBC Flagged by Analyzer 0 % (0-5); Neutrophil # 4.74 X10^3/uL (2.7-7.7); Neutrophil % 72.3 % (47-70); Platelet Count 160 K/mm3 (150-450); RBC Distribution Width CV 13.7 % (11.6-14.6); Red Blood Count 4.49 M/mm3 (4.6-6.2); White Blood Count 6.6 K/mm3 (4.4-11.0)
[2024-01-12 16:10] LABS: Anion Gap 10 (5-15); BUN 23 mg/dL (7-18); BUN/Creat Ratio 13.6 RATIO (10-20); Calcium,Total 9.3 mg/dL (8.5-10.1); Chloride 106 mmol/L (98-107); Creatinine, Serum 1.69 mg/dL (0.70-1.30); EST Glomerular Filtration Rate 42 mL/min (>60); Est Glom Filt Rate - Afr Amer 51 mL/min (>60); Estimated Creatinine Clearance 44.76 ml/min; Glucose 186 mg/dL (74-106); Potassium 4.3 mmol/L (3.5-5.1); Sodium Level 139 mmol/L (136-145); Troponin-I HS 266 pg/mL (3.0-78.0)
[2024-01-12 20:02] LABS: Troponin-I HS 278 pg/mL (3.0-78.0)
--- NOTE | 2024-01-12 20:06 | ED.RN ---
This RN attempted to give report, receiving nurse did not answer. This RN gave [facility] ED number in order for receiving nurse to call back.
== END 2024-01-13 00:02 | disposition short-term general hospital (02) ==
PROVIDERS: Emergency Provider Emergency Medicine; PCP Internal Medicine; Visit Provider Emergency Medicine
DX: R00.2 Palpitations (principal); I47.20 Ventricular tachycardia, unspecified; N18.30 Chronic kidney disease, stage 3 unspecified; R55 Syncope and collapse; I25.10 Atherosclerotic heart disease of native coronary artery without angina pectoris; I12.9 Hypertensive chronic kidney disease with stage 1 through stage 4 chronic kidney disease, or unspecified chronic kidney disease; E78.00 Pure hypercholesterolemia, unspecified; Z79.01 Long term (current) use of anticoagulants; Z85.46 Personal history of malignant neoplasm of prostate; K21.9 Gastro-esophageal reflux disease without esophagitis; Z79.899 Other long term (current) drug therapy; Z96.651 Presence of right artificial knee joint; Z85.828 Personal history of other malignant neoplasm of skin; Z90.79 Acquired absence of other genital organ(s)
CPT/HCPCS: 71045; 80048; 84484; 85025; 93005; 99285; A4216

== ENCOUNTER → 2024-03-01 | Outpatient (CLI) | payer MEDICARE, OTHER, SELFPAY ==
[2024-03-01 12:17] LABS: Absolute Lymphocyte Count 1.51 X10^3/uL (0.83-4.51); Basophil# 0.02 X10^3/uL; Basophil% 0.4 % (0-1); Eosinophil# 0.03 X10^3/uL; Eosinophils% 0.6 % (0-5); Hematocrit 43.9 % (40-54); Hemoglobin 14.6 g/dL (13.0-16.5); Lymphocyte # 1.51 X10^3/ul (0.83-4.51); Lymphocyte % 30.3 % (19-41); Mean Corp Hgb Conc 33.3 g/dL (32-36); Mean Corpuscular Volume 90.3 fL (80-94); Mean Platelet Vol. 11.1 fl (6.2-12.0); Monocyte# 0.46 X10^3/uL; Monocyte% 9.2 % (0-10); NRBC Flagged by Analyzer 0 % (0-5); Neutrophil # 2.95 X10^3/uL (2.7-7.7); Neutrophil % 59.1 % (47-70); Platelet Count 150 K/mm3 (150-450); RBC Distribution Width CV 13.1 % (11.6-14.6); RBC Distribution Width SD 43.3 fl (35.1-43.9); Red Blood Count 4.86 M/mm3 (4.6-6.2)
[2024-03-01 12:43] LABS: ALB/GLOB Ratio 1.2 RATIO (0.9-2.4); AST(SGOT) 25 U/L (15-37); Alanine Aminotransfer ALT/SGPT 17 U/L (16-61); Albumin, Serum 3.6 g/dL (3.2-5.0); Alkaline Phosphatase 78 U/L (45-117); Anion Gap 6 (5-15); BUN 23 mg/dL (7-18); BUN/Creat Ratio 17.3 RATIO (10-20); Calcium,Total 9.9 mg/dL (8.5-10.1); Chloride 104 mmol/L (98-107); Creatinine, Serum 1.33 mg/dL (0.70-1.30); EST Glomerular Filtration Rate 55 mL/min (>60); Est Glom Filt Rate - Afr Amer 67 mL/min (>60); Globulin 3.1 g/dL (2.2-4.2); Glucose 187 mg/dL (74-106); Potassium 4.1 mmol/L (3.5-5.1); Protein, Total 6.7 g/dL (6.4-8.2); Sodium Level 137 mmol/L (136-145)
== END | disposition home or self-care (01) ==
LOC: MTLAB 10:40
PROVIDERS: PCP Internal Medicine; Referring Provider Internal Medicine Rheumatology; Visit Provider Internal Medicine Rheumatology
DX: Z79.899 Other long term (current) drug therapy (principal); M50.30 Other cervical disc degeneration, unspecified cervical region; M17.0 Bilateral primary osteoarthritis of knee
CPT/HCPCS: 36415; 80053; 85025

== ENCOUNTER → 2024-04-27 | Outpatient (CLI) | payer MEDICARE, OTHER, SELFPAY ==
[2024-04-27 12:06] LABS: Absolute Lymphocyte Count 1.58 X10^3/uL (0.83-4.51); Basophil# 0.06 X10^3/uL; Basophil% 1.1 % (0-1); Eosinophil# 0.06 X10^3/uL; Eosinophils% 1.1 % (0-5); Hematocrit 41.8 % (40-54); Hemoglobin 14.4 g/dL (13.0-16.5); Lymphocyte # 1.58 X10^3/ul (0.83-4.51); Lymphocyte % 30.2 % (19-41); Mean Corp Hgb Conc 34.4 g/dL (32-36); Mean Corpuscular Hgb 30.6 pg (27.0-32.0); Mean Corpuscular Volume 88.9 fL (80-94); Mean Platelet Vol. 11.2 fl (6.2-12.0); Monocyte# 0.51 X10^3/uL; Monocyte% 9.7 % (0-10); NRBC Flagged by Analyzer 0 % (0-5); Neutrophil % 57.3 % (47-70); Platelet Count 172 K/mm3 (150-450); RBC Distribution Width CV 13.4 % (11.6-14.6); RBC Distribution Width SD 43.8 fl (35.1-43.9); White Blood Count 5.2 K/mm3 (4.4-11.0)
[2024-04-27 12:26] LABS: ALB/GLOB Ratio 1.2 RATIO (0.9-2.4); AST(SGOT) 25 U/L (15-37); Alanine Aminotransfer ALT/SGPT 18 U/L (16-61); Albumin, Serum 3.6 g/dL (3.2-5.0); Alkaline Phosphatase 100 U/L (45-117); Anion Gap 5 (5-15); BUN 30 mg/dL (7-18); Calcium,Total 9.4 mg/dL (8.5-10.1); Chloride 105 mmol/L (98-107); Creatinine, Serum 1.58 mg/dL (0.70-1.30); EST Glomerular Filtration Rate 45 mL/min (>60); Est Glom Filt Rate - Afr Amer 55 mL/min (>60); Globulin 3.1 g/dL (2.2-4.2); Glucose 176 mg/dL (74-106); Protein, Total 6.7 g/dL (6.4-8.2); Sodium Level 138 mmol/L (136-145)
== END | disposition home or self-care (01) ==
LOC: MTLAB 10:42
PROVIDERS: PCP Internal Medicine; Referring Provider Internal Medicine Rheumatology; Visit Provider Internal Medicine Rheumatology
DX: M06.4 Inflammatory polyarthropathy (principal); Z79.899 Other long term (current) drug therapy; K76.0 Fatty (change of) liver, not elsewhere classified
CPT/HCPCS: 36415; 80053; 85025

== ENCOUNTER → 2024-05-11 | Outpatient (CLI) | payer MEDICARE, OTHER, SELFPAY ==
[2024-05-15 13:07] LABS: Free Kappa Light Chains 17.7 mg/L (3.3-19.4); Free Lambda Light Chains 11.8 mg/L (5.7-26.3)
== END | disposition home or self-care (01) ==
LOC: MTLAB 12:32
PROVIDERS: PCP Internal Medicine; Referring Provider Internal Medicine Cardiovascular Disease; Visit Provider Internal Medicine Cardiovascular Disease
DX: I42.2 Other hypertrophic cardiomyopathy (principal)
CPT/HCPCS: 36415; 83883

== ENCOUNTER → 2024-05-14 | Outpatient (CLI) | payer MEDICARE, OTHER, SELFPAY ==
--- NOTE | 2024-05-14 12:18 | US_ITS ---
EXAM: US SOFT TISSUES HEAD AND NECK, THYROID CLINICAL INDICATION: Multiple thyroid nodules TECHNIQUE: Greyscale and color doppler imaging was performed of the thyroid gland. COMPARISON: Thyroid ultrasound, 1123 FINDINGS: LEFT THYROID LOBE: The left thyroid lobe is enlarged measuring 6.4 x 3.1 x 2.6 cm. There is a 2.6 cm left-sided thyroid nodule. This nodule is solid or almost completely solid, hyperechoic or isoechoic, [id number], ill-defined and contains no echogenic foci. Has increased in size since prior exam. TI-RADS points: 3. TI-RADS category: TR3. This nodule is mildly suspicious. Recommend FNA evaluation. There is a 3.4 cm left thyroid nodule. This nodule is solid or almost completely solid, hyperechoic or isoechoic, [id number], ill-defined and contains no echogenic foci. It has increased in size since prior examination. TI-RADS points: 3. TI-RADS category: TR3. This nodule is mildly suspicious. Recommend FNA evaluation. RIGHT THYROID LOBE: The right thyroid lobe is enlarged measuring 6.4 x 2.3 x 2.3 cm. There is an 8 mm right-sided thyroid nodule This nodule is cystic or nearly completely cystic. TI-RADS points: 0. TI-RADS category: TR1. This nodule is benign and no FNA or follow-up is necessary.. There is a 1.3 cm right-sided thyroid nodule. This nodule is solid or almost completely solid, hypoechoic, [id number]-[id number], ill-defined and contains no echogenic foci. It has increased in size since prior examination. TI-RADS points: 4. TI-RADS category: TR4. This nodule is moderately suspicious. Recommend follow-up thyroid ultrasounds at 1, 2 and 4 years. There is a 3.4 cm right-sided thyroid nodule. This nodule is solid or almost completely solid, hypoechoic, [id number]-[id number]-[id number], ill-defined and contains no echogenic foci. It has increased in size since prior examination. TI-RADS points: 4. TI-RADS category: TR4. This nodule is moderately suspicious. Recommend FNA evaluation. ISTHMUS: The thyroid isthmus measures 7.2 mm. No thyroid nodules are present. US/Thyroid IMPRESSION: 1. Thyromegaly. 2. As detailed above, multiple bilateral thyroid nodules. FNA is recommended for the largest 3 nodules. If definitive management is not performed, ultrasound should be performed yearly. Electronically Signed: Les Lombardi DO at 19:45 EST ,
== END | disposition home or self-care (01) ==
LOC: US 12:18
PROVIDERS: PCP Internal Medicine; Referring Provider Surgery; Visit Provider Surgery
DX: E04.2 Nontoxic multinodular goiter (principal)
CPT/HCPCS: 76536

== ENCOUNTER → 2024-07-17 | Outpatient (CLI) | payer MEDICARE, OTHER, SELFPAY | END | disposition home or self-care (01) | LOC: LABSPEC 12:26 | PROVIDERS: PCP Internal Medicine; Referring Provider Internal Medicine; Visit Provider Internal Medicine | DX: R05.9 Cough, unspecified (principal) | CPT/HCPCS: 87631 ==

== ENCOUNTER → 2024-07-24 | Outpatient (CLI) | payer MEDICARE, OTHER, SELFPAY ==
--- NOTE | 2024-07-24 13:09 | RAD_ITS ---
PROCEDURE: CHEST PA AND LATERAL REASON FOR EXAM: Shortness of breath. Recent flu diagnosis. TECHNIQUE: Frontal and lateral views of the chest. COMPARISON: Comparison is made with prior study dated December 22, 2023. FINDINGS: A left-sided dual-chamber pacemaker is seen. The heart size is normal. The mediastinal contour is unremarkable. The lungs are clear. Calcified granuloma in the lateral aspect of the left lower lobe. The bones are unremarkable. RAD/Chest PA and Lateral IMPRESSION: NO SIGNIFICANT CHANGE SINCE THE PRIOR EXAM. Stable examination. Reading Location: [id number]
== END | disposition home or self-care (01) ==
LOC: MTRAD 13:09
PROVIDERS: PCP Internal Medicine; Referring Provider Physician Assistant; Visit Provider Physician Assistant
DX: R05.9 Cough, unspecified (principal)
CPT/HCPCS: 71046

== ENCOUNTER → 2024-07-30 | Outpatient (CLI) | payer MEDICARE, OTHER, SELFPAY ==
[2024-07-30 13:16] LABS: Hemoglobin A1c 7.2 % (<=5.6)
[2024-07-30 13:28] LABS: Cholesterol 124 mg/dL (<=200); High Density Lipoprotein 42 mg/dL; Low Density Lipoprotein Calc. 11 mg/dL; Triglycerides 352 mg/dL; Very Low Density Lipoprotein 70 mg/dL (5-40); cholesterol:hdl ratio screen 2.93
[2024-07-30 13:28] LABS: Absolute Lymphocyte Count 1.32 X10^3/uL (0.83-4.51); Absolute Neutrophil Count 4.5 X10^3/uL (2.0-7.7); Basophil# 0.03 X10^3/uL; Basophil% 0.5 % (0-1); Eosinophil# 0.02 X10^3/uL; Eosinophils% 0.3 % (0-5); Hematocrit 42.5 % (40-54); Hemoglobin 14.5 g/dL (13.0-16.5); Lymphocyte # 1.32 X10^3/ul (0.83-4.51); Lymphocyte % 20.4 % (19-41); Mean Corp Hgb Conc 34.1 g/dL (32-36); Mean Corpuscular Hgb 29.9 pg (27.0-32.0); Mean Corpuscular Volume 87.6 fL (80-94); Mean Platelet Vol. 11.4 fl (6.2-12.0); Monocyte# 0.52 X10^3/uL; NRBC Flagged by Analyzer 0 % (0-5); Neutrophil # 4.53 X10^3/uL (2.7-7.7); Neutrophil % 69.9 % (47-70); Platelet Count 230 K/mm3 (150-450); RBC Distribution Width CV 13.3 % (11.6-14.6); RBC Distribution Width SD 42.2 fl (35.1-43.9); Red Blood Count 4.85 M/mm3 (4.6-6.2); White Blood Count 6.5 K/mm3 (4.4-11.0)
[2024-07-30 15:53] LABS: ALB/GLOB Ratio 1.5 RATIO (0.9-2.4); AST(SGOT) 24 U/L (<=37); Alanine Aminotransfer ALT/SGPT 9 U/L (<=46); Albumin, Serum 3.8 g/dL (3.4-4.8); Alkaline Phosphatase 97 U/L (40-129); Anion Gap 14 (5-15); BUN 25 mg/dL (4-19); BUN/Creat Ratio 20.8 RATIO (10-20); Calcium 9.6 mg/dL (7.6-11.0); Carbon Dioxide 19.2 mmol/L (22.0-29.0); Chloride 102 mmol/L (96-108); Creatinine, Serum 1.18 mg/dL (0.70-1.20); EST Glomerular Filtration Rate 64 (>60); Globulin 2.5 g/dL (2.2-4.2); Glucose 211 mg/dL (70-99); Potassium 4.1 mmol/L (3.3-5.1); Protein, Total 6.2 g/dL (5.9-8.4); Sodium Level 135 mmol/L (133-145); Total Bilirubin 0.42 mg/dL (0.00-1.30)
== END | disposition home or self-care (01) ==
LOC: MTLAB 10:47
PROVIDERS: PCP Internal Medicine; Referring Provider Internal Medicine; Visit Provider Internal Medicine
DX: M06.4 Inflammatory polyarthropathy (principal); Z79.899 Other long term (current) drug therapy
CPT/HCPCS: 36415; 80053; 80061; 83036; 85025

== ENCOUNTER → 2024-08-17 | Outpatient (CLI) | payer MEDICARE, OTHER, SELFPAY ==
--- NOTE | 2024-08-17 12:54 | ECHOCS_ITS ---
Reason For Study Reason For Study: Dyspnea/SOB, Valsalva for KWAME Procedure This was a 2D Doppler, Color Flow transthoracic echocardiogram. Contrast injection was performed. Exam performed in department. Left Ventricle Normal LV size. Left ventricular systolic function is normal. The left ventricular ejection fraction is 65 %. Stage 1 diastolic dysfunction. Resting LV gradient 11 mmHg. Valsalva LV gradient 8 mmHg. No regional wall motion abnormalities noted. Right Ventricle Normal RV size. ICD or pacer leads identified within the right ventricle. Normal systolic function. Atria Normal left atrium. Normal right atrium. ICD or pacer leads identified within the right atrium. Mitral Valve Normal mitral valve. Mild (1+) eccentric mitral valve insufficiency. Tricuspid Valve Normal tricuspid valve. Aortic Valve Trisinus/trileaflet aortic valve. Mild focal aortic valve calcification. Pulmonic Valve Normal pulmonic valve. Great Vessels Normal aortic root. The pulmonary artery is normal size. Inferior vena cava collapse with respiration. Pericardium/Pleural No pericardial effusion. Medication 22 gauge I.V. with prn adaptor inserted into left arm. Diluted definity 1.5ml given slow IV push to enhance endocardial definition. MMode/2D Measurements & Calculations LVIDd: 5.3 cm IVSd: 1.1 cm LVOT diam: 2.0 cm LVIDs: 3.1 cm LVPWd: 0.94 cm RVDd: 3.7 cm FS: 42.7 % LVOT area: 3.1 cm2 Ao root diam: 3.3 cm LAV(MOD-bp): 58.4 ml LA A4 area: 19.4 cm2 LAV(MOD-bp) Indexed: 27.3 ml/m2 LAV(MOD-sp2): 61.1 ml LAV(MOD-sp4): 49.7 ml LA dimension(2D): 4.4 cm TAPSE: 1.9 cm RA A4 area: 16.5 cm2 Time Measurements MV dec time: 0.22 sec Doppler Measurements & Calculations MV E max bob: 51.8 cm/sec Lat Peak E' Bob: 7.5 cm/sec Med Peak E' Bob: 7.4 cm/sec MV A max bob: 66.7 cm/sec E/E' lat: 6.9 E/E' med: 7.0 MV E/A: 0.78 MV V2 max: 79.3 cm/sec MV P1/2t max bob: 78.3 cm/sec Ao V2 max: 157.3 cm/sec MV max P.5 mmHg MV P1/2t: 74.9 msec Ao max P.9 mmHg MV V2 mean: 42.9 cm/sec MV dec slope: 306.1 cm/sec2 Ao V2 mean: 102.9 cm/sec MV mean P.88 mmHg Ao mean P.0 mmHg MV V2 VTI: 30.8 cm MVA(P1/2t): 2.9 cm2 Ao V2 VTI: 31.5 cm MVA(VTI): 2.6 cm2 AV (velocity ratio): 0.83 MYRA(I,D): 2.5 cm2 MYRA(V,D): 2.9 cm2 LV V1 max: 148.3 cm/sec MR max bob: 518.3 cm/sec SV(LVOT): 79.6 ml LV V1 max P.8 mmHg MR max P.5 mmHg LV V1 mean P.2 mmHg LV V1 mean: 79.5 cm/sec LV V1 VTI: 26.1 cm ECHO/Echo Complete W/ Contrast Interpretation Summary Normal LV size. Left ventricular systolic function is normal. The left ventricular ejection fraction is 65 %. Mild (1+) eccentric mitral valve insufficiency. ICD or pacer leads identified within the right ventricle. Stage 1 diastolic dysfunction. Valsalva LV gradient 8 mmHg. Ordering Physician: James Duque Referring Physician: James Duque Performed By: Jose L Hubbard RCS
== END | disposition home or self-care (01) ==
LOC: CVS 12:54
PROVIDERS: PCP Internal Medicine; Referring Provider Internal Medicine Cardiovascular Disease; Visit Provider Internal Medicine Cardiovascular Disease
DX: R06.09 Other forms of dyspnea (principal)
CPT/HCPCS: 93306; Q9957; A4216; C8929

== ENCOUNTER → 2024-10-19 | Outpatient (CLI) | payer MEDICARE, OTHER, SELFPAY ==
[2024-10-19 10:42] LABS: Absolute Lymphocyte Count 1.82 X10^3/uL (0.83-4.51); Absolute Neutrophil Count 2.8 X10^3/uL (2.0-7.7); Basophil# 0.05 X10^3/uL; Eosinophil# 0.06 X10^3/uL; Eosinophils% 1.2 % (0-5); Hematocrit 43.1 % (40-54); Hemoglobin 14.6 g/dL (13.0-16.5); Lymphocyte # 1.82 X10^3/ul (0.83-4.51); Lymphocyte % 35.1 % (19-41); Mean Corp Hgb Conc 33.9 g/dL (32-36); Mean Corpuscular Hgb 30.4 pg (27.0-32.0); Mean Corpuscular Volume 89.6 fL (80-94); Mean Platelet Vol. 11.2 fl (6.2-12.0); Monocyte# 0.46 X10^3/uL; Monocyte% 8.9 % (0-10); NRBC Flagged by Analyzer 0 % (0-5); Neutrophil # 2.77 X10^3/uL (2.7-7.7); Neutrophil % 53.4 % (47-70); Platelet Count 172 K/mm3 (150-450); RBC Distribution Width CV 13.3 % (11.6-14.6); RBC Distribution Width SD 43.9 fl (35.1-43.9); Red Blood Count 4.81 M/mm3 (4.6-6.2); White Blood Count 5.2 K/mm3 (4.4-11.0)
[2024-10-19 11:04] LABS: ALB/GLOB Ratio 1.4 RATIO (0.9-2.4); AST(SGOT) 28 U/L (<=37); Alanine Aminotransfer ALT/SGPT 14 U/L (<=46); Albumin, Serum 3.9 g/dL (3.4-4.8); Alkaline Phosphatase 93 U/L (40-129); Anion Gap 12 (5-15); BUN 17 mg/dL (4-19); BUN/Creat Ratio 15.1 RATIO (10-20); Calcium,Total 9.5 mg/dL (7.6-11.0); Carbon Dioxide 22.3 mmol/L (21.0-32.0); Chloride 102 mmol/L (98-108); Creatinine, Serum 1.13 mg/dL (0.70-1.20); EST Glomerular Filtration Rate 67 (>60); Globulin 2.7 g/dL (2.2-4.2); Glucose 137 mg/dL (70-99); Potassium 3.9 mmol/L (3.3-5.1); Protein, Total 6.6 g/dL (5.9-8.4); Sodium Level 136 mmol/L (133-145); Total Bilirubin 0.34 mg/dL (0.00-1.30)
== END | disposition home or self-care (01) ==
LOC: MTLAB 08:12
PROVIDERS: PCP Internal Medicine; Referring Provider Internal Medicine Rheumatology; Visit Provider Internal Medicine Rheumatology
DX: M06.4 Inflammatory polyarthropathy (principal); Z79.899 Other long term (current) drug therapy; M50.30 Other cervical disc degeneration, unspecified cervical region; K76.0 Fatty (change of) liver, not elsewhere classified
CPT/HCPCS: 36415; 80053; 85025

== ENCOUNTER → 2024-10-25 | Outpatient (CLI) | payer MEDICARE, OTHER, SELFPAY ==
--- NOTE | 2024-10-25 11:55 | US_ITS ---
PROCEDURE: THYROID, 10/25/2024 REASON FOR EXAM: THYROID NODULE TECHNIQUE: Grayscale and color Doppler imaging of the thyroid was performed. COMPARISON: 05/22/2024 FINDINGS: Right lobe measures 5.9 x 2.6 x 2.7cm. Heterogeneous background echotexture. No abnormal vascularity. Nodules as below: *15 x 14 x 9 mm, solid, hypoechoic, TI-RADS 4. Previously 13 x 11 x 13 mm. *20 x 20 x 23 mm, mostly solid, isoechoic, TI-RADS 3. Previously 34 x 19 x 22 mm. *18 x 22 x 15 mm, mostly solid, isoechoic, TI-RADS 3. Not previously measured. Left lobe measures 6.6 x 2.7 x 2.6 cm. Heterogeneous background echotexture. No abnormal vascularity. Nodules as below: *17 x 13 x 14 mm, mostly solid, partially hypoechoic, TI-RADS 4. Unclear correlate previously. *31 x 25 x 21 mm, mostly solid, partially hypoechoic, TI-RADS 4. Previously 34 x 19 x 25 mm. Isthmus measures 7 mm in thickness. US/Thyroid IMPRESSION: 1. Assessment is TI-RADS 4. A 15 mm TI-RADS 4 nodule on the RIGHT, a 17 mm TI- RADS 4 nodule on the LEFT and a 31 mm TI-RADS 4 nodule on the LEFT meets criteria for FNA which is recommended as per the below . 2. Enlarged and heterogeneous multinodular goiter. Correlate for thyroiditis. Management recommendations for TI-RADS 3 findings: FNA if = 2.5 cm; Follow if = 1.5 cm at 1, 3, and 5 years. Management recommendations for TI-RADS 4 findings: FNA if = 1.5 cm; Follow if = 1 cm at 1, 2, 3, and 5 years. Enlargment is defined as ?20% increase in at least two nodule dimensions, with a minimal increase of 2 mm or ?50% or greater increase in volume. Recommendations per ACR Thyroid Imaging, Reporting and Data System (TI-RADS): Mya mirza Paper of the ACR TI-RADS Committee, 2017 ([email or web address] Reading Location: [id number]
== END | disposition home or self-care (01) ==
LOC: US 11:54
PROVIDERS: PCP Internal Medicine; Referring Provider Surgery; Visit Provider Surgery
DX: E04.2 Nontoxic multinodular goiter (principal)
CPT/HCPCS: 76536

== ENCOUNTER → 2024-11-13 | Outpatient (CLI) | payer MEDICARE, OTHER, SELFPAY ==
--- NOTE | 2024-11-13 13:30 | ASPIG_PTH ---
PATIENT: YOAV DOUGHERTY LOC: [facility] U#:[id number] AGE/SX: 79/M ROOM: RE11/13/[address]: Dr. James Mercer MD : 1945 BED: DIS: 11/13/2024 SPEC #: [id number] RECD: 11/13/24 13:50 STATUS: MAKEDA REAzeb #: [id number] GENE: 11/13/24 13:[address]: James Mercer DEPT: CYTOLOGY RECD BY: Lorenzo Lewis ENTERED: 11/13/24 14:23 SP TYPE: ASP OUT OTHR DR: Dr. Amanda Vergara MD Tissues: A - Thyroid gland, NOS Procedures: FNA Specimen Adequacy Special Stain Group II Surgery Specimen Level IV Cytology Other HEADER OPERATION: Fine needle aspiration of left thyroid nodule PRE-OP DIAGNOSIS: Left thyroid nodule TISSUE SUBMITTED: A- Left thyroid nodule for cytology DIAGNOSIS CYTOLOGY A. Left thyroid, nodule (cytospin x1, smear x4), FNA: * Atypical cells of undetermined significance (TBS III). COMMENT Afirma sample will be submitted. CYTOLOGY STUDY Slides are reviewed. CYTOLOGY GROSS A. Received is 30 ml of red-cloudy fluid, cytolyt with particles and 4 smears labeled with the patient's name and and designated per the requisition as Left thyroid nodule. Submitted for cytology and cytospin. 11/13/2024 CPT: 66042,62052 ADDENDUM ADDENDUM ADDENDUM ADDENDUM ADDENDUM ADDENDUM ADDENDUM ADDENDUM ADDENDUM ADDENDUM 12/10/2024 08:30 ADDENDUM 12/10/2024 08:30 ADDENDUM 12/10/2024 08:30 ADDENDUM 12/10/2024 08:30 ADDENDUM 12/10/2024 08:30 AFIRMA RESULTS REPORT RESULTS INTERPRETATION: The result of this 1.7 cm [place] III nodule A is [place] [facility] [place] which suggests a low risk of cancer of approximately 4%. Treatment like a cytologically benign nodule may be appropriate, including clinical correlation. [facility]irma XA is not performed [place] [facility] [place]. TERT promoter region analysis is not performed on [facility] [place]. Please see complete report in e-chart or EMR
== END | disposition home or self-care (01) ==
PROVIDERS: PCP Internal Medicine; Referring Provider Surgery; Visit Provider Surgery
DX: E04.1 Nontoxic single thyroid nodule (principal)
CPT/HCPCS: 88161; 88172; 88305; 88313

== ENCOUNTER → 2024-12-21 | Outpatient (CLI) | payer MEDICARE, OTHER, SELFPAY ==
[2024-12-21 10:12] LABS: Hematocrit 42.0 % (40-54); Hemoglobin 14.4 g/dL (13.0-16.5); Immature Granulocytes Count 0.020 X10^3/uL (0.0-0.0); Mean Corp Hgb Conc 34.3 g/dL (32-36); Mean Corpuscular Volume 89.0 fL (80-94); Mean Platelet Vol. 10.6 fl (6.2-12.0); NRBC Flagged by Analyzer 0 % (0-5); Platelet Count 176 K/mm3 (150-450); RBC Distribution Width CV 13.6 % (11.6-14.6); RBC Distribution Width SD 44.4 fl (35.1-43.9); Red Blood Count 4.72 M/mm3 (4.6-6.2); White Blood Count 5.1 K/mm3 (4.4-11.0)
[2024-12-21 10:51] LABS: AST(SGOT) 30 U/L (<=37); Alanine Aminotransfer ALT/SGPT 11 U/L (<=46); Albumin, Serum 4.1 g/dL (3.4-4.8); Alkaline Phosphatase 88 U/L (40-129); Anion Gap 10 (5-15); BUN 33 mg/dL (4-19); BUN/Creat Ratio 25.5 RATIO (10-20); Calcium,Total 9.8 mg/dL (7.6-11.0); Carbon Dioxide 22.4 mmol/L (21.0-32.0); Chloride 103 mmol/L (98-108); Globulin 2.6 g/dL (2.2-4.2); Glucose 134 mg/dL (70-99); Potassium 4.3 mmol/L (3.3-5.1)
== END | disposition home or self-care (01) ==
LOC: MTLAB 08:06
PROVIDERS: PCP Internal Medicine; Referring Provider Internal Medicine Rheumatology; Visit Provider Internal Medicine Rheumatology
DX: M06.4 Inflammatory polyarthropathy (principal); Z79.899 Other long term (current) drug therapy; M50.30 Other cervical disc degeneration, unspecified cervical region
CPT/HCPCS: 36415; 80053; 85025

== ENCOUNTER → 2025-02-03 | Outpatient (CLI) | payer MEDICARE, OTHER, SELFPAY | END | disposition home or self-care (01) | LOC: LABSPEC 02-04 07:34 | PROVIDERS: PCP Internal Medicine; Visit Provider Nurse Practitioner Family | DX: R82.90 Unspecified abnormal findings in urine (principal) | CPT/HCPCS: 87077; 87086; 87088; 87186 ==

== ENCOUNTER → 2025-05-14 | Outpatient (CLI) | payer MEDICARE, OTHER, SELFPAY ==
--- NOTE | 2025-05-14 11:06 | RAD_ITS ---
PROCEDURE: CERV SPINE 4 OR 5 VIEWS 05/14/2025 REASON FOR EXAM: Neck pain TECHNIQUE: [facility] [place] [facility] DX Procedure: CERV SPINE 4 OR 5 VIEWS COMPARISON: None available. FINDINGS: The cervical lordosis is maintained. The odontoid process is intact. The cervical vertebral body heights are normal in height. No significant spondylolisthesis. Intervertebral disc space height loss most prominent at C6-C7. Scattered anterior osteophytes. Multilevel facet arthrosis and uncovertebral spurring. Soft tissue calcification in the region of the carotid arteries. RAD/Cerv Spine 4 or 5 Views IMPRESSION: No spondylolisthesis in the cervical spine. Degenerative changes. Disclaimer: Reading Location: [facility]
--- NOTE | 2025-05-14 11:06 | RAD_ITS ---
PROCEDURE: HIP, UNI W/ PELVIS 2-3 VIEWS 05/14/2025 REASON FOR EXAM: PAIN TECHNIQUE: Procedure Code: [facility] Modality: DX Procedure: HIP, UNI W/ PELVIS 2-3 VIEWS Pelvis and two views of the left hip COMPARISON: None FINDINGS: There is no fracture or dislocation. The joint space appears maintained. The pelvic bones appear intact. Mineralization is normal. Vascular calcifications are visible. RAD/HIP, UNI W/ Pelvis 2-3 Views IMPRESSION: No fracture or dislocation is identified. Reading Location: [facility]
[2025-05-14 11:40] LABS: Hematocrit 41.4 % (40-54); Hemoglobin 13.7 g/dL (13.0-16.5); Immature Granulocytes Count 0.060 X10^3/uL (0.0-0.0); Mean Corp Hgb Conc 33.1 g/dL (32-36); Mean Corpuscular Volume 87.5 fL (80-94); Mean Platelet Vol. 11.1 fl (6.2-12.0); NRBC Flagged by Analyzer 0 % (0-5); Platelet Count 242 K/mm3 (150-450); RBC Distribution Width CV 13.0 % (11.6-14.6); RBC Distribution Width SD 41.5 fl (35.1-43.9); Red Blood Count 4.73 M/mm3 (4.6-6.2); White Blood Count 8.4 K/mm3 (4.4-11.0)
[2025-05-14 11:58] LABS: AST(SGOT) 22 U/L (<=37); Alanine Aminotransfer ALT/SGPT 10 U/L (<=46); Albumin, Serum 3.8 g/dL (3.4-4.8); Alkaline Phosphatase 88 U/L (40-129); Anion Gap 12 (5-15); BUN 24 mg/dL (4-19); BUN/Creat Ratio 16.3 RATIO (10-20); CRP 175.00 mg/L (0.0-3.0); Calcium,Total 9.8 mg/dL (7.6-11.0); Carbon Dioxide 24.8 mmol/L (21.0-32.0); Chloride 95 mmol/L (98-108); Cholesterol 156 mg/dL (<=200); Globulin 3.4 g/dL (2.2-4.2); Glucose 219 mg/dL (70-99); Low Density Lipoprotein Calc. 88 mg/dL; PSA,Total- Diagnostic 0.38 ng/mL (0.00-4.00); Potassium 4.5 mmol/L (3.3-5.1); Triglycerides 127 mg/dL; Very Low Density Lipoprotein 25 mg/dL (5-40); cholesterol:hdl ratio screen 3.47
[2025-05-15 14:09] LABS: Anti-Chromatin <0.2 AI (0.0-0.9); Anti-Jo <0.2 AI (0.0-0.9); Anti-dsDNA Ab <1 IU/mL (0-9); SJOGREN'S Anti-SS-A test < 0.2 AI (0.0-0.9); SJOGREN'S Anti-SS-B test < 0.2 AI (0.0-0.9)
[2025-05-16 18:57] LABS: Uric Acid 5.9 mg/dL (3.5-7.2)
== END | disposition home or self-care (01) ==
LOC: LAB 10:34
PROVIDERS: PCP Internal Medicine; Referring Provider Internal Medicine; Visit Provider Internal Medicine
DX: M54.2 Cervicalgia (principal); C61 Malignant neoplasm of prostate; G89.29 Other chronic pain; E78.00 Pure hypercholesterolemia, unspecified; I10 Essential (primary) hypertension; M35.3 Polymyalgia rheumatica; M79.676 Pain in unspecified toe(s)
CPT/HCPCS: 36415; 72050; 73502; 80053; 80061; 84153; 84550; 85025; 85652; 86140; 86225; 86235

== ENCOUNTER → 2025-05-15 | Outpatient (CLI) | payer MEDICARE, OTHER, SELFPAY ==
[2025-05-15 09:55] LABS: Red Blood Cells-Urine 0 SEEN /hpf (0-5)
[2025-05-15 12:29] LABS: Color, Urine Amber (Yellow); Glucose, Dipstick Normal (Normal); Ketone-Dipstick Negative (Negative); Leukocyte Esterase-Dipstick Negative /ul (Negative); Nitrite-Dipstick Negative (Negative); Occult Blood-Urine 10 /ul (Negative); Protein-Dipstick 30 mg/dl (Negative); Specific Gravity, Urine 1.020 (1.002-1.030); Urine Bilirubin Dipstick Negative (Negative)
[2025-05-15 12:49] LABS: Squamous Epithelial Cells - UA 0-5 SEEN /hpf (0-5)
[2025-05-15 12:50] LABS: Fine Granular Cast- Urine 0-5 SEEN /lpf (0-5); Mucous, Urine 1+ /hpf (<or=2+)
== END | disposition home or self-care (01) ==
LOC: MTLAB 09:50
PROVIDERS: PCP Internal Medicine; Referring Provider Internal Medicine; Visit Provider Internal Medicine
DX: R89.9 Unspecified abnormal finding in specimens from other organs, systems and tissues (principal); R53.83 Other fatigue
CPT/HCPCS: 81001; 87086

== ENCOUNTER → 2025-05-16 | Outpatient (CLI) | payer MEDICARE, OTHER, SELFPAY | END | disposition home or self-care (01) | LOC: LAB 16:41 | PROVIDERS: PCP Internal Medicine; Referring Provider Nurse Practitioner Family; Visit Provider Nurse Practitioner Family | DX: N30.01 Acute cystitis with hematuria (principal) | CPT/HCPCS: 36415; 87040 ==